=== PATIENT | female | born 2000 | race Two or more races ===

== ENCOUNTER 2022-09-29 21:22 | Emergency (ER) | payer OTHER, SELFPAY ==
--- NOTE | ~2022-09-29 | CT_ITS ---
EXAMINATION: CT ABDOMEN AND PELVIS WITHOUT CONTRAST CLINICAL INFORMATION: Constipation. Right flank pain, dysuria. COMPARISON: None TECHNIQUE: Multidetector volumetric imaging was performed from the superior aspect of the liver through the pubic symphysis. Sagittal and coronal reformatted images were obtained on the technologist's workstation. This CT examination was performed using dose optimization techniques as appropriate, variously including the following: *Automated exposure control *Adjustment of mA and/or kV according to patient size (this includes techniques or standardized protocols for targeted exams where dose is matched to indication/reason for exam; i.e. extremities or head) *Use of iterative reconstruction technique DLP: 1224 mGy-cm FINDINGS: LUNG BASES: The visualized lung bases are unremarkable. LIVER, GALLBLADDER, AND BILIARY TREE: The liver is normal in size, shape, and attenuation. No focal hepatic lesion or biliary ductal dilatation is present. The gallbladder is unremarkable with no evidence of radiopaque gallstones, gallbladder wall thickening, or obvious pericholecystic inflammatory changes. PANCREAS: Unremarkable. SPLEEN: Unremarkable. ADRENAL GLANDS: Unremarkable. KIDNEYS AND URETERS: The kidneys are normal in size, shape, and attenuation. No hydronephrosis, hydroureter, or calculi seen. No perinephric stranding. BLADDER: Unremarkable. GASTROINTESTINAL TRACT: Stomach, small bowel, and colon are normal in caliber. No bowel wall thickening or surrounding inflammatory changes. Appendix is normal. No intraperitoneal free fluid or free air. ABDOMINAL WALL: No significant hernia is appreciated. LYMPH NODES: Normal. VASCULAR: Unremarkable. PELVIC VISCERA: The uterus and adnexa are unremarkable. OSSEOUS STRUCTURES: No acute osseous findings. Bone mineralization is normal. No fractures. Lumbar spine is unremarkable. CT/CT abdomen pelvis wo IV con IMPRESSION: No acute abnormalities in the abdomen and pelvis. No hydronephrosis or nephrolithiasis. Fleischner guidelines were followed.
--- NOTE | ~2022-09-29 | CT_ITS ---
EXAMINATION: CT HEAD WITHOUT CONTRAST CLINICAL INFORMATION: slurred speech COMPARISON: None TECHNIQUE: Contiguous axial imaging was performed from the skull base to vertex without intravenous administration of contrast. This CT examination was performed using dose optimization techniques as appropriate, variously including the following: *Automated exposure control *Adjustment of mA and/or kV according to patient size (this includes techniques or standardized protocols for targeted exams where dose is matched to indication/reason for exam; i.e. extremities or head) *Use of iterative reconstruction technique Dose: 1224 mGy-cm FINDINGS: There is no evidence of acute intracranial hemorrhage or territorial infarction. No abnormal mass-effect or midline shift is seen. Daniels to white matter differentiation is well preserved. No extra axial fluid collections. The ventricles are normal in size and configuration. There is no abnormal attenuation within the brain parenchyma. The soft tissues and osseous structures are normal. The sinuses and mastoid air cells are clear. CT/CT head/brain wo IV con IMPRESSION: No acute intracranial pathology.
[2022-09-29 21:29] VITALS: BP 137/97; PULSE 134; RESP 18; TEMP 36.6; O2SAT 100; BMI 30.5
--- NOTE | 2022-09-29 22:23 | ECG_ITS ---
Test Reason : SOB Blood Pressure : / mmHG Vent. Rate : 128 BPM Atrial Rate : 128 BPM P-R Int : 122 ms QRS Dur : 080 ms QT Int : 306 ms P-R-T Axes : 041 051 -12 degrees QTc Int : [address] & T wave abnormality, consider inferior ischemia Abnormal ECG No previous ECGs available Referred By: Hanna Robertson Electronically Signed By:AMPARO ELKINS MD
--- NOTE | 2022-09-29 22:35 | ED.GENADULT ---
HPI - General Adult General Chief complaint: General Medical Stated complaint: pain while urinating, kdney, back, nauseous Time Seen by Provider: 09/29/22 22:22 Source: patient Mode of arrival: ambulatory Limitations: no limitations History of Present Illness HPI narrative: 22 year old female with no PMHx presents to the ED with her partner c/o bilateral flank pain, painful urination x5 days, constipation x 1 week, slurred speech and left lower head tigthness x 2 days. She reports taking laxative and milk of magnesia to help with constipation but denies alleviation of symptoms and reports lightheadedness with straining. She endorses flank pain associated with nausea and painful urination. Patient's partner reports worsening of speech this morning at work associated with SOB and palpitations. She reports associated tightness in the back of her neck and numbness of her feet. Pt denies any syncope, chest pain, recent illness, sick contact or recent travel. MD complaint: multiple medical complaints Onset (ago): week(s) (1 week) Location: head, back and abdomen Severity: moderate Quality: stabbing and aching Pain Consistency: constant Relieving factors: none Exacerbating factors: none Associated symptoms: cough, headaches, loss of appetite, malaise, shortness of breath and weakness Treatments prior to arrival: none Related Data Allergies Allergy/AdvReac Type Severity Reaction Status Date / Time Unable to Assess Allergy Unverified 09/29/22 22:23 Review of Systems Review of Systems: Constitutional: No Fever, No Chills ENT/Mouth: No sore throat, No Rhinorrhea, No Swallowing Difficulty Eyes: No Eye Pain, No Swelling, No Redness Cardiovascular: No Chest Pain, +SOB, No Orthopnea, No Edema Respiratory: No Cough, No Sputum, No Wheezing, No dyspnea Gastrointestinal: No Nausea, No Vomiting, No Diarrhea, No abdominal Pain, + Constipation Genitourinary: + Dysuria, No Urinary Frequency, No Hematuria Musculoskeletal: No joint pain, + Myalgias , +Neck tightness, +Flank pain Skin: No Skin Lesions, No rash Neuro: No Weakness,+ Numbness, No Dizziness, No Headache ,+ pressured/slurred speech Psych: No Anxiety/Panic, No Depression PMFSH Past Medical History Attestation statement: The following information was validated with the patient. Social History Social History Smoked in Last 30 Days: No Use of substances other than those prescribed or required for medical reasons: No Advance Directives: No Advance Directives Information Provided: Yes Patient : No Physical Exam ED Vital Signs: Vital Signs - 24 hr 09/29/22 21:29 09/30/22 00:11 09/30/22 00:23 Temperature 97.9 F 98.9 F 98.5 F Pulse Rate 134 H 123 H 128 H Respiratory Rate 18 23 H 21 H Blood Pressure 137/97 H 139/95 H 139/95 H Pulse Oximetry 100 99 98 Oxygen Delivery Method Room Air Room Air Room Air BMI result Body Mass Index 30.5 Appearance: Alert. Oriented X3. No acute distress. Eyes: Pupils equal, round and reactive to light. ENT: Pharynx normal. Neck: Normal inspection. Neck supple. +Neck tightness CVS: Pulses normal. +Tachycardic, regular rhythm - rate 120s Respiratory: No respiratory distress. Breath sounds normal. Abdomen: Soft with mild diffuse tenderness to deep palpation. positive +BS x4 No CVA tenderness. Skin: Skin warm and dry. Normal skin color. Normal skin turgor. No rashes. Extremities: No lower extremity edema. Neuro: Oriented X 3. No motor deficit. No sensory deficit. No numbness. CN II-XII intact. speech is pressured. Course Course Course Narrative: 22-year-old otherwise healthy female presents to the ER for for various complaints including constipation, dysuria, SOB, and slurred speech. Will get lab workup, CT scan of her head and abdomen, EKG, urinalysis and test. Reevaluation(s) Reevaluation #1: Labs show normal CBC. Metabolic panel is normal. EKG sinus tach without ischemic changes. CT the head is normal. CT of the abdomen and pelvis is normal. Pending urinalysis. Getting IV fluids. Will give bowel regimen orally for her reports of constipation. No significant stool burden seen on CT scan. Reevaluation #2: UA negative for infection. Ambulated to the bathroom. No pain at this time. Tolerating PO viridiana erin. Getting IVF. HR improved 110s, no distress and appears well. Anticipate d/c home once IVF resuscitation complete. Medications Administered Discontinued Medications Generic Name Dose Route Start Last Admin Trade Name Freq PRN Reason Stop Dose Admin Sodium Chloride 1,000 mls @ 999 mls/hr 09/29/22 22:30 09/30/22 00:11 Ns IVCONT 09/29/22 23:30 999 mls/hr .Q1H1M AIDAN Administration Ondansetron HCl 4 mg 09/29/22 22:42 09/30/22 00:11 Ondansetron Hcl 4 Mg/2 Ml Vial IVPUSH 09/29/22 22:43 4 mg ONCE ONE Administration Medical Decision Making [facility] Narrative Medical decision making narrative: 22 year old female with no PMHx presents to the ED with her partner c/o flank pain, painful urination x5 days, constipation x 1 week, slurred speech and left lower head tightness x 2 days. On exam , she is tachycardic with HR 134 and hypertensive with BP 137/97. Concern for Nephrolithiasis vs Pyelonephritis vs UTI, bowel obstruction. Low suspicion for CVA, migraine,colon cancer Plan: Labs, CT head, CT Abdomen Medical Records Medical records reviewed: Yes I reviewed the patient's medical records. Lab Data Lab results reviewed: Yes I reviewed the patient's lab results. Result diagrams: 09/29/22 22:53 09/29/22 22:53 Labs: Lab Results 09/29/22 09/29/22 09/30/22 Range/Units 22:53 22:53 00:13 WBC 7.0 (4.8-10.8) X10*3/uL RBC 4.45 (4.20-5.50) X10*6/uL Hgb 13.2 (12.0-16.0) g/dl Hct 40.3 (37.0-47.0) % MCV 90.6 (80.0-98.0) fL MCH 29.7 (27.0-33.0) pg MCHC 32.8 (31.0-35.0) g/dl RDW 14.6 (11.0-16.0) % Plt Count 385 (160-400) X10*3/uL MPV 8.6 L (9.4-12.3) fL Immature Gran % (Auto) 0.4 (0.0-0.4) % Neut % (Auto) 64.2 (45-73) % Lymph % (Auto) 26.8 (20-40) % [place] % (Auto) 7.7 (2-11) % Eos % (Auto) 0.6 (0-4) % Baso % (Auto) 0.3 (0-2) % Lymph # (Auto) 1.9 (1.2-4.9) X10*3/uL [place] # (Auto) 0.5 (0.1-1.2) X10*3/uL Eos # (Auto) 0.0 (0.0-0.4) X10*3/uL Baso # (Auto) 0.0 (0.0-0.2) X10*3/uL Abs Immat Gran (auto) 0.03 (0.00-0.03) X10*3/uL Absolute Neuts (auto) 4.5 (2.0-8.3) x10*3/uL Absolute Nucleated RBC 0.000 (0.0-0.012) X10*3/uL Nucleated RBC % (auto) 0.0 (0.0-0.2) /100WBC Sodium 140 (135-145) mmol/L Potassium 4.1 (3.3-5.1) mmol/L Chloride 103 (96-108) mmol/L Carbon Dioxide 23 (22-29) mmol/L Anion Gap 18 (12-20) BUN 11 (9-16) mg/dL Creatinine 1.21 (0.5-1.4) mg/dL Estim Creat Clear Calc 64.1 Estimated GFR 56 Random Glucose 93 (60-115) mg/dL Calcium 9.2 (8.4-10.2) mg/dL Magnesium 1.8 (1.6-2.6) mg/dL Total Bilirubin < 0.2 (0.0-1.0) mg/dL Direct Bilirubin < 0.2 (0.0-0.5) mg/dL AST 20 (5-31) U/L ALT 17 (0-31) U/L Alkaline Phosphatase 82 (39-117) U/L Total Protein 7.2 (6.5-8.0) g/dL Albumin 4.5 (3.5-5.0) g/dL Beta HCG, Quant < 2 mIU/mL Urine Color Urine Appearance Urine pH (5.0-9.0) Ur Specific [place] (1.005-1.025) Urine Protein (Neg-Trace) mg/dL Urine Glucose (UA) (Negative) mg/dL Urine Ketones (Negative) mg/dL Urine Blood (Negative) Urine Nitrite (Negative) Ur Leukocyte Esterase (Negative) Ethyl Alcohol < 10 mg/dL COVID-19 ([facility]) Negative (Negative) 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/22 Range/Units 00:43 WBC (4.8-10.8) X10*3/uL RBC (4.20-5.50) X10*6/uL Hgb (12.0-16.0) g/dl Hct (37.0-47.0) % MCV (80.0-98.0) fL MCH (27.0-33.0) pg MCHC (31.0-35.0) g/dl RDW (11.0-16.0) % Plt Count (160-400) X10*3/uL MPV (9.4-12.3) fL Immature Gran % (Auto) (0.0-0.4) % Neut % (Auto) (45-73) % Lymph % (Auto) (20-40) % [place] % (Auto) (2-11) % Eos % (Auto) (0-4) % Baso % (Auto) (0-2) % Lymph # (Auto) (1.2-4.9) X10*3/uL [place] # (Auto) (0.1-1.2) X10*3/uL Eos # (Auto) (0.0-0.4) X10*3/uL Baso # (Auto) (0.0-0.2) X10*3/uL Abs Immat Gran (auto) (0.00-0.03) X10*3/uL Absolute Neuts (auto) (2.0-8.3) x10*3/uL Absolute Nucleated RBC (0.0-0.012) X10*3/uL Nucleated RBC % (auto) (0.0-0.2) /100WBC Sodium (135-145) mmol/L Potassium (3.3-5.1) mmol/L Chloride (96-108) mmol/L Carbon Dioxide (22-29) mmol/L Anion Gap (12-20) BUN (9-16) mg/dL Creatinine (0.5-1.4) mg/dL Estim Creat Clear Calc Estimated GFR Random Glucose (60-115) mg/dL Calcium (8.4-10.2) mg/dL Magnesium (1.6-2.6) mg/dL Total Bilirubin (0.0-1.0) mg/dL Direct Bilirubin (0.0-0.5) mg/dL AST (5-31) U/L ALT (0-31) U/L Alkaline Phosphatase (39-117) U/L Total Protein (6.5-8.0) g/dL Albumin (3.5-5.0) g/dL Beta HCG, Quant mIU/mL Urine Color Yellow Urine Appearance Clear Urine pH 7.0 (5.0-9.0) Ur Specific [place] 1.010 (1.005-1.025) Urine Protein Negative (Neg-Trace) mg/dL Urine Glucose (UA) Negative (Negative) mg/dL Urine Ketones Negative (Negative) mg/dL Urine Blood Negative (Negative) Urine Nitrite Negative (Negative) Ur Leukocyte Esterase Negative (Negative) Ethyl Alcohol mg/dL COVID-19 ([facility]) (Negative) COVID-19 Clin Com ECG Data Attestation: I personally reviewed and interpreted this ECG as follows: Prior ECG tracings: not available for review Interpretation: Sinus tachycardia, ventricular rate 120 beats per minute, normal QRS, normal QTC. T-wave inversion in lead III and AVF. Discharge Plan Discharge Clinical Impression: Constipation Patient Disposition: Home, Self-Care Instructions: Constipation (ED) Additional Instructions: Your lab workup today was normal. Your CT scans were normal. Your urine test was negative for infection and . Recommend rest, plenty of oral hydration. Recommend [id number] Colace and senna to help you move your bowels. Also recommend MiraLax as a laxative. Follow-up with your primary care doctor. If you develop new or worsening symptoms call 911 or come back to the ER for further evaluation.
[2022-09-29 22:58] LABS: MANUAL DIFF FLAG NO
[2022-09-29 23:03] LABS: Basophils Percent Auto 0.3 % (0-2); Eosinophils Percent Auto 0.6 % (0-4); Hematocrit 40.3 % (37.0-47.0); Hemoglobin 13.2 g/dl (12.0-16.0); Imm Gran Abs Auto 0.03 X10*3/uL (0.00-0.03); Imm Gran Pct Auto 0.4 % (0.0-0.4); Lymphocytes Absolute Auto 1.9 X10*3/uL (1.2-4.9); Lymphocytes Percent Auto 26.8 % (20-40); Mean Corpuscular HGB Conc 32.8 g/dl (31.0-35.0); Mean Corpuscular Hemoglobin 29.7 pg (27.0-33.0); Mean Corpuscular Volume 90.6 fL (80.0-98.0); Mean Platelet Volume 8.6 fL (9.4-12.3); Monocytes Absolute Auto 0.5 X10*3/uL (0.1-1.2); Monocytes Percent Auto 7.7 % (2-11); Neutrophils Absolute Auto 4.5 x10*3/uL (2.0-8.3); Neutrophils Percent Auto 64.2 % (45-73); Platelet Count 385 X10*3/uL (160-400); Red Blood Count 4.45 X10*6/uL (4.20-5.50); Red Cell Distribution Width 14.6 % (11.0-16.0)
[2022-09-29 23:22] LABS: Alanine Aminotransferase 17 U/L (0-31); Albumin Level 4.5 g/dL (3.5-5.0); Alkaline Phosphatase 82 U/L (39-117); Anion Gap 18 (12-20); Aspartate Amino Transferase 20 U/L (5-31); Bilirubin Direct < 0.2 mg/dL (0.0-0.5); Bilirubin Total < 0.2 mg/dL (0.0-1.0); Blood Urea Nitrogen 11 mg/dL (9-16); Calcium 9.2 mg/dL (8.4-10.2); Carbon Dioxide 23 mmol/L (22-29); Chloride 103 mmol/L (96-108); Creatinine Clr Calc Pharmacy 64.1; Estimated Glomerular Filt Rate 56; Ethanol < 10 mg/dL; Glucose Random 93 mg/dL (60-115); Magnesium 1.8 mg/dL (1.6-2.6); Potassium 4.1 mmol/L (3.3-5.1); Sodium 140 mmol/L (135-145); Total Protein 7.2 g/dL (6.5-8.0)
[2022-09-29 23:46] LABS: HCG Quantitative < 2 mIU/mL
[2022-09-30 00:11] VITALS: BP 139/95; PULSE 123; RESP 23; TEMP 37.2; O2SAT 99
[2022-09-30] MEDS: ondansetron HCL 4 MG/2 ML VIAL IVPUSH (00:11)
[2022-09-30] MEDS: 0.9 % Sodium Chloride 1,000 ML 999 ML IVCONT (00:11)
[2022-09-30 00:23] VITALS: BP 139/95; PULSE 128; RESP 21; TEMP 36.9; O2SAT 98
--- NOTE | 2022-09-30 00:23 | PC.NURSE ---
Pt's at bedside, he has reported. pt has been having difficulties speaking since yesterday and has been complaining of nausea, llq pain 5/10 and difficulty of speak. Pt V/S are stable , but she is sinus tachy on the monitor. Provider is notified.
[2022-09-30 00:30] LABS: COVID-19 Test Negative (Negative); IDNOW Serial# BCCEAD1C
[2022-09-30 00:53] LABS: Appearance Urine Clear; Color Urine Yellow; Glucose Urine UA Negative (Negative); Leukocyte Esterase Urine Negative (Negative); Nitrite Urine Negative (Negative); Urine Blood Negative (Negative); Urine Ketones Negative (Negative); Urine Protein Negative (Neg-Trace)
[2022-09-30 01:19] LABS: Amphetamine Screen Urine Not Detected (Not Detect); Barbiturates, Urine Not Detected (Not Detect); Benzodiazepines Screen Urine Not Detected (Not Detect); Cannabinoid Screen Urine Not Detected (Not Detect); Cocaine Screen Urine Not Detected (Not Detect); Fentanyl, urine Not Detected (Not Detect); Opiate Screen Urine Not Detected (Not Detect); Phencyclidine Screen Urine Not Detected (Not Detect)
[2022-09-30] MEDS: Docusate Sodium 100 MG CAPSULE 200 MG PO (01:40)
[2022-09-30] MEDS: Ibuprofen 600 MG TABLET PO (01:40)
[2022-09-30] MEDS: LORazepam 1 MG TABLET PO (01:40)
[2022-09-30] MEDS: polyethylene glycoL 3350 17 GM POWD.PACK PO (01:41)
[2022-09-30] MEDS: Lactated Ringers 1,000 ML 999 ML IV (01:43)
[2022-09-30 04:31] VITALS: BP 144/104; PULSE 111; RESP 20; TEMP 36.9; O2SAT 99
[2022-09-30 06:08] VITALS: BP 137/100; PULSE 113; RESP 17; TEMP 37.1; O2SAT 98
== END 2022-09-30 06:40 | disposition home or self-care (01) ==
PROVIDERS: Physician Assistant; Emergency Provider Internal Medicine
DX: K59.00 Constipation, unspecified (principal); R00.0 Tachycardia, unspecified; Z20.822 Contact with and (suspected) exposure to COVID-19; R10.9 Unspecified abdominal pain; R47.81 Slurred speech; R20.0 Anesthesia of skin; M79.10 Myalgia, unspecified site
CPT/HCPCS: 70450; 74176; 80048; 80076; 80307; 81003; 82077; 83735; 84702; 85025; 87635; 93005; 96361; 96374; 99285; J2405

== ENCOUNTER 2022-10-03 09:54 | Emergency (ER) | payer OTHER, SELFPAY ==
--- NOTE | ~2022-10-03 | XR_ITS ---
EXAMINATION: XR ABDOMEN KUB CLINICAL INDICATION: Constipation COMPARISON: None TECHNIQUE: 2 views of the abdomen. FINDINGS: The bowel gas pattern is normal with no evidence of ileus or obstruction. No unusual soft tissue calcifications are noted. The bones are unremarkable. XR/XR KUB IMPRESSION: Unremarkable examination.
[2022-10-03 10:01] VITALS: BP 141/89; PULSE 112; RESP 14; TEMP 36.3; O2SAT 100; BMI 30.2
--- NOTE | 2022-10-03 10:20 | ED_ITS ---
HPI - General Adult General Chief complaint: General Medical Stated complaint: Unable to have a Bowel Movement 11 Days Time Seen by Provider: 10/03/22 10:16 Source: patient Mode of arrival: ambulatory Limitations: no limitations History of Present Illness HPI narrative: 22 y/o female presents to the ER complaining of constipation and urinary retention. She was here for constipation on 09/29 - he had an unremarkable CT scan done at that time as well as unremarkable lab workup. Patient states since then she has been taking [id number]-[id number] MiraLax, milk of magnesia, increasing her fiber and hydration. She reports a history of constipation in the past but nothing this bad. She denies any fever or chills. No vaginal bleeding or discharge. She reports difficulty urinating and needing to ?concentrate? when she needs to urinate. She denies any dysuria or hematuria. MD complaint: Constipation Onset (ago): week(s) Location: head Radiation: non-radiation Severity: moderate Pain Consistency: constant Relieving factors: none Exacerbating factors: none Associated symptoms: confusion, loss of appetite and other (Fatigue) Treatments prior to arrival: none Related Data Previous Rx's Medication Instructions Recorded bisacodyl 10 mg rectal suppository 10 mg OH DAILY PRN constipation 10/03/22 (Dulcolax (bisacodyl)) #12 ea docusate sodium 100 mg capsule 100 mg PO BID #20 caps 10/03/22 (Colace) sennosides 8.6 mg tablet (senna) 8.6 mg PO DAILY #14 tabs 10/03/22 Allergies Allergy/AdvReac Type Severity Reaction Status Date / Time No Known Allergies Allergy Verified 10/03/22 10:07 Review of Systems Review of Systems: Constitutional: No Fever, No Chills, +Fatigue ENT/Mouth: No sore throat, No Rhinorrhea, No Swallowing Difficulty Eyes: No Eye Pain, No Swelling, No Redness Cardiovascular: No Chest Pain, No SOB, No Orthopnea, No Edema Respiratory: No Cough, No Sputum, No Wheezing, No dyspnea Gastrointestinal: + Nausea, No Vomiting, No Diarrhea, No abdominal Pain, No Hematochezia, No Melena Genitourinary: No Dysuria, No Urinary Frequency, No Hematuria Musculoskeletal: No joint pain, No Myalgias Skin: No Skin Lesions, No rash Neuro: No Weakness, No Numbness, No Dizziness, No Headache Psych: No Anxiety/Panic, No Depression Heme/Lymph: No Bruising, No Lymphadenopathy Endocrine: No Polyuria, No Polydipsia PMFSH Social History Social History Advance Directives: No Advance Directives Information Provided: Yes Physical Exam ED Vital Signs: Vital Signs - 24 hr 10/03/22 10:01 Temperature 97.4 F Pulse Rate 112 H Respiratory Rate 14 Blood Pressure 141/89 H Pulse Oximetry 100 Oxygen Delivery Method Room Air BMI result Body Mass Index 30.2 Course Course Course Narrative: 22-year-old female presents to the ER for constipation for the last 11 days. She also reports feeling ?off? and fatigued. She has tried several hbnk-vhk-briuhju remedies with minimal success. She did have a small bowel movement this morning with what looked like sand. She also had 1 episode of vomiting this morning. CT scan from the has been reviewed as well as her lab workup. Will get KUB and urinalysis. Will treat with oral laxatives and rectal suppository. Will reassess. Reevaluation(s) Reevaluation #1: Patient up to the bathroom and evacuated large amount of gas and small amount of stool. Abdomen is nice and soft. At this time stable for discharge home with OH Dulcolax and oral bowel regimen. Will refer to GI. Medications Administered Discontinued Medications Generic Name Dose Route Start Last Admin Trade Name Freq PRN Reason Stop Dose Admin Bisacodyl 10 mg 10/03/22 10:57 10/03/22 11:14 Bisacodyl 10 Mg Supp.Rect OH 10/03/22 10:58 10 mg ONCE ONE Administration Lactulose 30 gm 10/03/22 10:57 10/03/22 11:13 Lactulose 20 Gm/30 Ml Solution PO 10/03/22 10:58 30 gm ONCE ONE Administration Polyethylene Glycol 17 gm 10/03/22 10:57 10/03/22 11:20 Polyethylene Glycol 3350 17 Gm Powd.Pack PO 10/03/22 10:58 17 gm ONCE ONE Administration Senna 15 ml 10/03/22 10:57 10/03/22 11:13 Senna [place] Extract Oral Syrup 15 Ml Syrup PO 10/03/22 10:58 15 ml ONCE ONE Administration Medical Decision Making Lab Data Labs: Lab Results 10/03/22 Range/Units 11:04 Urine Color Yellow Urine Appearance Clear Urine pH 5.5 (5.0-9.0) Ur Specific [place] 1.025 (1.005-1.025) Urine Protein Negative (Neg-Trace) mg/dL Urine Glucose (UA) Negative (Negative) mg/dL Urine Ketones Negative (Negative) mg/dL Urine Blood Negative (Negative) Urine Nitrite Negative (Negative) Ur Leukocyte Esterase Negative (Negative) Discharge Plan Discharge Clinical Impression: Constipation Patient Disposition: Home, Self-Care Instructions: Constipation (ED), High Fiber Diet (ED) Additional Instructions: Your x-ray today did not show any evidence of bowel obstruction. Take the prescribed medications as directed. Also recommend continuing MiraLax once or twice per day. Recommend following up with GI if you have ongoing symptoms of constipation. If you develop new or worsening symptoms call 911 or come back to the ER for further evaluation. Prescriptions: New sennosides [senna] 8.6 mg tablet 8.6 mg PO DAILY Qty: 14 0RF docusate sodium [Colace] 100 mg capsule 100 mg PO BID Qty: 20 0RF bisacodyl [Dulcolax (bisacodyl)] 10 mg suppository 10 mg [place] DAILY PRN (Reason: constipation) Qty: 12 0RF Referrals: [facility] Gastroenterology Services [Provider Group] Stand Alone Forms: Work/School Release Interventions: ED Discharge Assessment Last Done: 10/03/22 13:22 Discharge Date/Time: 10/03/22 13:23
[2022-10-03] MEDS: Lactulose 20 GM/30 ML SOLUTION 30 GM PO (11:13)
[2022-10-03] MEDS: bisacodyL 10 MG SUPP.RECT PR (11:14)
[2022-10-03 11:20] LABS: Appearance Urine Clear; Color Urine Yellow; Glucose Urine UA Negative (Negative); Leukocyte Esterase Urine Negative (Negative); Nitrite Urine Negative (Negative); PH 5.5 (5.0-9.0); Specific Gravity - Urine 1.025 (1.005-1.025); Urine Blood Negative (Negative); Urine Ketones Negative (Negative); Urine Protein Negative (Neg-Trace)
[2022-10-03] MEDS: polyethylene glycoL 3350 17 GM POWD.PACK PO (11:20)
[2022-10-03 13:37] LABS: Urine Pregnancy NEGATIVE (NEGATIVE)
[2022-10-03 13:38] LABS: UPreg QC Valid YES
== END 2022-10-03 13:23 | disposition home or self-care (01) ==
PROVIDERS: Physician Assistant; Emergency Provider Emergency Medicine Emergency Medical Services
DX: K59.00 Constipation, unspecified (principal); Z79.899 Other long term (current) drug therapy
CPT/HCPCS: 74018; 81003; 81025; 99283

== ENCOUNTER 2022-10-24 19:16 | Emergency (ER) | payer OTHER, SELFPAY ==
--- NOTE | ~2022-10-24 | XR_ITS ---
EXAMINATION: BILATERAL HAND X-RAY CLINICAL INFORMATION: Bilateral hand swelling COMPARISON: None TECHNIQUE: 3 views of each hand FINDINGS: Bone alignment is normal. No fracture or dislocation. Normal joint spaces. Normal mineralization. Normal soft tissues. XR/XR hand LT 2V IMPRESSION: Unremarkable exam.
--- NOTE | ~2022-10-24 | XR_ITS ---
EXAMINATION: BILATERAL HAND X-RAY CLINICAL INFORMATION: Bilateral hand swelling COMPARISON: None TECHNIQUE: 3 views of each hand FINDINGS: Bone alignment is normal. No fracture or dislocation. Normal joint spaces. Normal mineralization. Normal soft tissues. XR/XR hand RT 2V IMPRESSION: Unremarkable exam.
[2022-10-24 19:37] VITALS: BMI 33.0
[2022-10-24 19:40] VITALS: RESP 20
[2022-10-24] MEDS: Haloperidol Lactate 5 MG/ML VIAL IM (19:40)
[2022-10-24] MEDS: diphenhydrAMINE HCL 50 MG/ML VIAL IM (19:40)
[2022-10-24] MEDS: Ziprasidone Mesylate 20 MG VIAL IM (19:40)
--- NOTE | 2022-10-24 19:40 | ED_ITS ---
HPI - General Adult General Stated complaint: Section 12 Time Seen by Provider: 10/24/22 19:18 Source: EMS Mode of arrival: EMS Limitations: other (Erratic behavior) History of Present Illness HPI narrative: Patient comes to the emergency room via EMS. Patient is erratic, screaming, singing relations music, unwilling to talk. EMS and Police Department report that patient was found outside the house. The owners of the house called PD. They state that the patient knock on their door, patient yelling that she needed help. PD arrived, patient was barefooted, run in the middle of the street healing that she wanted to . Patient was Section 12 by police department. When the ambulance was in route to the hospital, patient tried to get out of the stretcher and tried to exit the ambulance. Police department officer was in the ambulance, the patient was handcuffed. On arrival to the emergency room, patient is screaming, kicking, singing nondenominational music, not answering any question. Police department states that they are not sure if this is the patient's correct name, patient did not have an ID on her. Related Data Allergies Allergy/AdvReac Type Severity Reaction Status Date / Time Unable to Assess Allergy Unverified 10/24/22 19:38 Review of Systems Review of Systems: Yes Unobtainable due to mental condition PMFSH Past Medical History Attestation statement: The following information was validated with the patient. (Patient's 1st visit in the emergency room, no prior information, patient is not giving any information) Physical Exam ED Const Other: Appearance: Alert. Acting erratic, barefooted Eyes: Pupils equal, round and reactive to light. ENT: Pharynx normal. Neck: Normal inspection. Neck supple. No lymph nodes noted. No crepitus CVS: Normal heart rate and rhythm. Pulses normal. Normal S1 and S2 Respiratory: No respiratory distress. Breath sounds normal. No Wheezing. No rales Abdomen: Soft and nontender. No rigidity. No distention. Skin: Skin warm and dry. Patient has old ecchymosis and swelling in both dorsums of the hand Extremities: See skin above Neuro: CN 2 through 12 grossly intact music missing Psych: Acting erratic, screaming, throwing punches and kicks randomly, singing nondenominational music Course Course Course Narrative: Staff tried redirecting the patient, but patient is not following any directions. Continues kicking punching, screaming very loudly, singing nondenominational music. Section 12 was filled out by police department. For staff's safety and the patient's safety, patient was given IM Haldol 5 mg, 50 mg Benadryl, 20 mg Geodon. Patient was sitting quietly for a few minutes, then suddenly patient got up and tried to run out the door. Patient was stopped by staff and redirected to her room. At this time, patient seems to be sleeping comfortably All of the patient's labs are pending. Also, x-rays of both hands are pending. Patient has old ecchymosis in both dorsums and patient is unable to provide any history. Behavioral health network consult pending. Physician observation started at 19:50 Discharge Plan Discharge Clinical Impression: Psychosis, Suicidal ideation Patient Disposition: Still a Patient
[2022-10-24 19:55] VITALS: RESP 18
[2022-10-24 20:10] VITALS: RESP 18
[2022-10-24 20:25] VITALS: RESP 16
--- NOTE | 2022-10-24 20:26 | MHC.CARE ---
Pt is a 22 year old female that presented to [facility] ED via EMS with reports of pt being found outside the house with erratic behaviors (screaming, singing relational music, and unwilling to talk). Plan discussed with Richelle Haider MD. Pt to be reassessed in the morning.
[2022-10-24 20:40] VITALS: RESP 16
--- NOTE | 2022-10-24 21:09 | PC.NURSE ---
Patient grossly paranoid, endorsing visual hallucination seeing her , intermittently yelling and screaming, trying to pull her hand out of police handcuff so hard that risk of hurting her already bruised wrist is paramount, grossly disoriented, provider on site, Haldol mg IM, Benadryl 50 mg IM and Geodon 20 mg IM administered as ordered at 1939 with + effect, patient finally fell sleep at 2024, changeover is not appropriate at this time, provider okayed to have place change roof bolter done when patient is more appropriate later. Spoke with patient's in the waiting room, per patient has long history mental health issues, patient stopped taking her medication after they hybrid tester here from [place], reported patient often engages in binge drinking, today found cannabis gummy edibles and cannabis oil used for vaping at the bed side.
[2022-10-25 05:20] VITALS: RESP 17
--- NOTE | 2022-10-25 05:49 | PC.NURSE ---
Patient slept through the night, no distress observed/reported, all labs order and changeover pending per provider due to increased psychosis, [facility] pharmacy called to retrieve medication history with no luck, pharmacy called for help and they tried without success, however pharmacy will will call [place] in the morning to retrieve medication history, per patient's she was diagnosed with Bipolar in [place], N referral completed/confirmed/pending ETA, will continue to monitor.
[2022-10-25 06:46] VITALS: BP 140/92; PULSE 71; RESP 16; TEMP 36.8; O2SAT 100
[2022-10-25 07:06] LABS: UPreg QC Valid YES; Urine Pregnancy NEGATIVE (NEGATIVE)
[2022-10-25 07:13] LABS: Appearance Urine Clear; Color Urine Yellow; Glucose Urine UA Negative (Negative); Leukocyte Esterase Urine Negative (Negative); Nitrite Urine Negative (Negative); PH 5.5 (5.0-9.0); Specific Gravity - Urine 1.015 (1.005-1.025); UMIC TRIGGER UA YES; Urine Blood Negative (Negative); Urine Ketones Negative (Negative); Urine Protein 30 (1+) mg/dL (Neg-Trace)
[2022-10-25 07:15] LABS: Amphetamine Screen Urine Not Detected (Not Detect); Barbiturates, Urine Not Detected (Not Detect); Benzodiazepines Screen Urine Not Detected (Not Detect); Cannabinoid Screen Urine POSITIVE (Not Detect); Cocaine Screen Urine Not Detected (Not Detect); Fentanyl, urine Not Detected (Not Detect); Opiate Screen Urine Not Detected (Not Detect); Phencyclidine Screen Urine Not Detected (Not Detect)
[2022-10-25 07:16] LABS: Bacteria Urine Trace (None Seen); Hyaline Casts Urine 0-2 /LPF (0-2); WBC Urine 0-5 /HPF (0-5)
[2022-10-25 07:28] LABS: MANUAL DIFF FLAG NO
[2022-10-25 07:30] LABS: Basophils Percent Auto 0.2 % (0-2); Eosinophils Percent Auto 0.1 % (0-4); Hematocrit 41.3 % (37.0-47.0); Hemoglobin 13.6 g/dl (12.0-16.0); Imm Gran Abs Auto 0.07 X10*3/uL (0.00-0.03); Imm Gran Pct Auto 0.7 % (0.0-0.4); Lymphocytes Absolute Auto 1.8 X10*3/uL (1.2-4.9); Lymphocytes Percent Auto 18.4 % (20-40); Mean Corpuscular HGB Conc 32.9 g/dl (31.0-35.0); Mean Corpuscular Hemoglobin 29.1 pg (27.0-33.0); Mean Corpuscular Volume 88.4 fL (80.0-98.0); Mean Platelet Volume 8.1 fL (9.4-12.3); Monocytes Absolute Auto 0.7 X10*3/uL (0.1-1.2); Monocytes Percent Auto 7.2 % (2-11); Neutrophils Absolute Auto 7.2 x10*3/uL (2.0-8.3); Neutrophils Percent Auto 73.4 % (45-73); Platelet Count 371 X10*3/uL (160-400); Red Blood Count 4.67 X10*6/uL (4.20-5.50); Red Cell Distribution Width 14.4 % (11.0-16.0); White Blood Count 9.8 X10*3/uL (4.8-10.8)
[2022-10-25 07:36] LABS: Influenza A PCR NEGATIVE (Negative); Influenza B PCR NEGATIVE (Negative); Resp Syncy Virus RNA Qual PCR NEGATIVE (Negative); SARS COV2 PCR INHOUSE NEGATIVE (Negative)
[2022-10-25 07:47] VITALS: RESP 19
[2022-10-25 08:21] LABS: Alanine Aminotransferase 26 U/L (0-31); Albumin Level 4.3 g/dL (3.5-5.0); Alkaline Phosphatase 82 U/L (39-117); Anion Gap 15 (12-20); Aspartate Amino Transferase 51 U/L (5-31); Blood Urea Nitrogen 11 mg/dL (9-16); Calcium 9.5 mg/dL (8.4-10.2); Carbon Dioxide 26 mmol/L (22-29); Chloride 102 mmol/L (96-108); Creatinine Clr Calc Pharmacy 101.4; Estimated Glomerular Filt Rate > 60; Glucose Random 116 mg/dL (60-115); Potassium 4.2 mmol/L (3.3-5.1); Sodium 139 mmol/L (135-145); Total Protein 6.9 g/dL (6.5-8.0)
[2022-10-25 08:43] LABS: Bilirubin Total 0.3 mg/dL (0.0-1.0)
--- NOTE | 2022-10-25 11:11 | PC.NURSE ---
Per [facility]: keep pt in ED until 1500, for to pick her up.
== END 2022-10-25 15:51 | disposition home or self-care (01) ==
PROVIDERS: Emergency Provider Emergency Medicine
DX: F43.0 Acute stress reaction (principal); R45.851 Suicidal ideations; M79.642 Pain in left hand; M79.641 Pain in right hand; Z79.899 Other long term (current) drug therapy; Z20.822 Contact with and (suspected) exposure to COVID-19
CPT/HCPCS: 0241U; 36415; 73120; 80053; 80307; 81001; 81003; 81025; 85025; 96372; 99285; J1200; J3486

== ENCOUNTER 2022-10-25 21:35 | Emergency (ER) | payer OTHER, SELFPAY ==
[2022-10-25 21:43] VITALS: BP 137/93; BP 142/94; PULSE 119; PULSE 130; RESP 22; TEMP 36.6; O2SAT 100; O2SAT 99; BMI 31.1
[2022-10-25 21:48] VITALS: BP 137/93; PULSE 116; PULSE 118; RESP 16; TEMP 36.5; O2SAT 98
[2022-10-25 21:50] LABS: Glucose, Whole Blood 185 mg/dL (60-115)
--- NOTE | 2022-10-25 22:02 | ED_ITS ---
HPI - Psych General Chief Complaint: ETOH/Substance Use Stated Complaint: overdose Time Seen by Provider: 10/25/22 21:41 Source: EMS Mode of arrival: EMS Limitations: other ( intoxicated) History of Present Illness HPI Narrative: patient comes to the emergency room by EMS. family called EMS because patient started having erratic, slow to respond, diaphoretic. Patient took 10 THC gummies. Of note, patient was seen here for the same thing. However, yesterday patient did not have an ID on her, patient was registered as Pina Nelson Timoteo ( registration will help us merge both charts together). yesterday, patient presented much worse than today, yesterday patient was psychotic, punching and kicking people, singing sabianist music. Today, patient is slow to respond. According to EMS, patient is tachycardic in the 120s to 130s. Blood pressure reported by EMS was in the 170s, here in the ED 137/93. Patient is answering questions but she is slow to do so. Related Data Previous Rx's Medication Instructions Recorded bisacodyl 10 mg rectal suppository 10 mg NH DAILY PRN constipation 10/03/22 (Dulcolax (bisacodyl)) #12 ea docusate sodium 100 mg capsule 100 mg PO BID #20 caps 10/03/22 (Colace) sennosides 8.6 mg tablet (senna) 8.6 mg PO DAILY #14 tabs 10/03/22 Allergies Allergy/AdvReac Type Severity Reaction Status Date / Time No Known Allergies Allergy Verified 10/03/22 10:07 Review of Systems Review of Systems: Constitutional : No Weight loss, No Fever, No Chills, No Night Sweats, No Fatigue, No Malaise ENT/Mouth : No Hearing loss, No Ear Pain, No Nasal Congestion, No Sinus Pain, No Hoarseness, No sore throat, No Rhinorrhea, No Swallowing Difficulty Eyes: No Eye Pain, No Swelling, No Redness, No Foreign Body, No Discharge, No Vision Changes Cardiovascular : No Chest Pain, No SOB, No Dyspnea on Exertion, No Orthopnea, No Edema, No Palpitations Respiratory : No Cough, No Sputum, No Wheezing, No Smoke Exposure, No Dyspnea Gastrointestinal : No Nausea, No Vomiting, No Diarrhea, No Constipation, No abdominal Pain, No Hematochezia, No Melena Genitourinary : no irregular bleeding, No Dysuria, No Urinary Frequency, No Hematuria, No Urinary Incontinence, No Urgency, No Flank Pain, No Urinary Flow Changes, No Hesitancy Musculoskeletal : No joint pain, No Myalgias, No Joint Swelling Skin : No Skin Lesions, No rash Neuro : No Weakness, No Numbness, No Paresthesias, No Loss of Consciousness, No Dizziness, No Headache Psych : No Anxiety/Panic, No Depression, No SI/HI/AH/VH, Admits to using marijuana gummies Heme/Lymph: No Bruising, No Bleeding,No Lymphadenopathy Endocrine : No Polyuria, No Polydipsia, No Temperature Intolerance [facility], [facility] Past Medical History Medical History (Updated 10/25/22 @ 22:14 by Richelle Haider MD) Bipolar disorder Substance abuse Social History Social History Alcohol intake: current Alcohol intake frequency: holidays/special occasions only Smoked in Last 30 Days: No Use of substances other than those prescribed or required for medical reasons: Yes Substance Use Type: Marijuana Physical Exam Vital Signs: Vital Signs: Last Vital Signs Temp 97.7 F 10/25/22 21:48 Pulse 118 H 10/25/22 21:48 Resp 16 10/25/22 21:48 BP 137/93 H 10/25/22 21:48 Pulse Ox 98 10/25/22 21:48 O2 Del Method 10/25/22 21:48 BMI result Body Mass Index 31.1 Const: Other: Appearance: Alert. Oriented X3. No acute distress. Eyes: Pupils equal, round and reactive to light. ENT: Pharynx normal. Neck: Normal inspection. Neck supple. No lymph nodes noted. No crepitus CVS: Normal heart rate and rhythm. Pulses normal. Normal S1 and S2 Respiratory: No respiratory distress. Breath sounds normal. No Wheezing. No rales Abdomen: Soft and nontender. No rigidity. No distention. Skin: Skin warm and dry. Normal skin color. Normal skin turgor. Extremities: No lower extremity edema. No Lacerations. No Rash Neuro: Oriented X 3. No motor deficit. No sensory deficit. Moving all extremities. No slurred speech. CN 2 through 12 grossly intact Psych: calm, cooperative, after question is asked to the patient, patient stares, takes approximately 10 seconds to answer with small short words Course Course Course Narrative: patient receiving IV fluids, blood glucose within normal limits. We will allow the patient to metabolize to freedom and then re-evaluate. At this time, patient denies any suicidal or homicidal ideation. Physician observation started at 22:00 Medical Decision Making Medical Decision Making Differential Diagnoses: Differential diagnosis ( marijuana abuse, polysubstance abuse) Discharge Plan Discharge Clinical Impression: Cannabis abuse Patient Disposition: Still a Patient Prescriptions: No Action sennosides [senna] 8.6 mg tablet 8.6 mg PO DAILY Qty: 14 0RF docusate sodium [Colace] 100 mg capsule 100 mg PO BID Qty: 20 0RF bisacodyl [Dulcolax (bisacodyl)] 10 mg suppository 10 mg NH DAILY PRN (Reason: constipation) Qty: 12 0RF Interventions: [place]-Suicide Risk Severity Scale Last Done: 10/25/22 21:48
[2022-10-25 23:09] VITALS: BP 122/81; PULSE 107; RESP 15; TEMP 37.2; O2SAT 99
[2022-10-26] VITALS (8 sets, daily range): BP systolic 119–138; BP diastolic 76–92; PULSE 94–114; RESP 11–20; TEMP 36.8–37.2; O2SAT 98–100
--- NOTE | 2022-10-26 14:27 | PC.NURSE ---
patient a/ox4 . VSS . Went over discharge instructions as ordered by provider . Patient to follow up with N , contact information provided . no questions at this time
== END 2022-10-26 14:28 | disposition home or self-care (01) ==
PROVIDERS: Emergency Provider Emergency Medicine
DX: F12.10 Cannabis abuse, uncomplicated (principal); F19.10 Other psychoactive substance abuse, uncomplicated
CPT/HCPCS: 82947; 99283; 99285

== ENCOUNTER 2022-12-01 06:29 | Emergency (ER) | payer SELFPAY ==
[2022-12-01 06:33] VITALS: BP 129/90; PULSE 112; RESP 20; TEMP 36.1; O2SAT 100; BMI 29.0
[2022-12-01 07:17] LABS: MANUAL DIFF FLAG NO
[2022-12-01 07:26] LABS: Basophils Percent Auto 0.5 % (0-2); Hematocrit 39.5 % (37.0-47.0); Hemoglobin 13.4 g/dl (12.0-16.0); Imm Gran Abs Auto 0.03 X10*3/uL (0.00-0.03); Imm Gran Pct Auto 0.5 % (0.0-0.4); Lymphocytes Absolute Auto 2.3 X10*3/uL (1.2-4.9); Lymphocytes Percent Auto 41.2 % (20-40); Mean Corpuscular HGB Conc 33.9 g/dl (31.0-35.0); Mean Corpuscular Hemoglobin 29.5 pg (27.0-33.0); Mean Platelet Volume 8.2 fL (9.4-12.3); Monocytes Absolute Auto 0.2 X10*3/uL (0.1-1.2); Monocytes Percent Auto 3.9 % (2-11); Neutrophils Percent Auto 53.9 % (45-73); Platelet Count 436 X10*3/uL (160-400); Red Blood Count 4.54 X10*6/uL (4.20-5.50); Red Cell Distribution Width 14.5 % (11.0-16.0); White Blood Count 5.6 X10*3/uL (4.8-10.8)
[2022-12-01 07:35] LABS: Anion Gap 13 (12-20); Blood Urea Nitrogen 10 mg/dL (9-16); Calcium 8.8 mg/dL (8.4-10.2); Carbon Dioxide 29 mmol/L (22-29); Chloride 103 mmol/L (96-108); Creatinine Clr Calc Pharmacy 109.7; Estimated Glomerular Filt Rate > 60; Glucose Random 110 mg/dL (60-115); Potassium 3.9 mmol/L (3.3-5.1); Sodium 141 mmol/L (135-145)
--- NOTE | 2022-12-01 07:39 | ED_ITS ---
HPI - General Adult General Chief complaint: Abdominal Pain Stated complaint: n/v Time Seen by Provider: 12/01/22 07:21 Source: patient Mode of arrival: ambulatory Limitations: no limitations History of Present Illness HPI narrative: 22-year-old female came in for evaluation of abdominal pain and vomiting. The abdominal pain started since last night after eating a whole bag of chips woke up with epigastric pain and non stopping vomiting, no diarrhea, patient thinks she might be no vaginal bleed or discharge. Never had surgical history in the past. Related Data Previous Rx's Medication Instructions Recorded bisacodyl 10 mg rectal suppository 10 mg NM DAILY PRN constipation 10/03/22 (Dulcolax (bisacodyl)) #12 ea docusate sodium 100 mg capsule 100 mg PO BID #20 caps 10/03/22 (Colace) sennosides 8.6 mg tablet (senna) 8.6 mg PO DAILY #14 tabs 10/03/22 Allergies Allergy/AdvReac Type Severity Reaction Status Date / Time No Known Allergies Allergy Verified 12/01/22 06:36 Review of Systems Review of Systems: All other systems are reviewed and are negative Constitutional: Reports as per HPI and Reports no additional constitutional complaints Eyes: Reports as per HPI and Reports no additional eye complaints Reports system reviewed and no additional complaints, except as documented Cardiovascular: Reports as per HPI and Reports no additional cardiovascular complaints Respiratory: Reports as per HPI and Reports no additional respiratory complaints Gastrointestinal: Reports as per HPI and Reports no additional gastrointestinal complaints Genitourinary: Reports no additional female genitourinary complaints Musculoskeletal: Reports no additional musculoskeletal complaints Skin/Breast: Reports system reviewed and no additional complaints, except as docu Psychiatric: Reports no additional psychiatric complaints Endocrine: Reports no additional endocrine complaints Hematologic/Lymphatic: Reports no additional hematologic/lymphatic complaints Allergic/Immunologic: Reports no additional allergic/immunologic complaints Reports system reviewed and no additional complaints, except as documented and Reports Abnormal speech present [facility] Past Medical History Medical History Bipolar disorder Substance abuse Social History Social History Alcohol intake: current Alcohol intake frequency: holidays/special occasions only Substance Use Type: Marijuana Advance Directives: No Advance Directives Information Provided: Yes Physical Exam ED Vital Signs: Vital Signs - 24 hr 12/01/22 06:33 Temperature 96.9 F Pulse Rate 112 H Respiratory Rate 20 Blood Pressure 129/90 H Pulse Oximetry 100 Oxygen Delivery Method Room Air BMI result Body Mass Index 29.0 Vital signs have been reviewed as appeared to be correct. Blood pressure normal. Heart rate normal. Respiration rate normal. Temperature normal. Oxygen saturation normal. Appearance: Anxious, Alert. Oriented X3. No acute distress. Head: Normal external exam. Normocephalic. Atraumatic. No Valero signs noted. No raccoon eyes noted Eyes: PERRLA. EOMI. Conjunctiva and sclera normal. Eyelids normal. ENT: TM's Normal. Pharynx normal. Uvula midline. Moist mucous membranes. No trismus noted. No drooling noted. No muffled voice noted. Neck: Normal inspection. Neck supple. FROM. No adenopathy. Thyroid Normal. No meningeal signs. No neck mass noted. CVS: Normal heart rate and rhythm. Heart sound normal. No murmurs noted. Pulses normal throughout. Respiratory: No respiratory distress. Painless inspiration. Breath sounds normal . No wheezes/rales/rhonchi noted. Chest nontender. No accessory muscle usage noted or decreased air movement noted. Abdomen: Soft and nontender. Bowel sounds normal in all 4 quadrants. No distention noted. No organomegaly noted. No visible injury noted. Back: No CVA tenderness. Full range of motion noted. Skin: Skin warm and dry. Normal skin color. Normal skin turgor. No rashes/lesions/lacerations noted. Extremities: No lower extremity edema. Extremities exhibit normal range of motion. Extremities nontender. Neuro: Oriented X 3. Cranial nerve exam: II-XII are grossly intact No motor deficit. No sensory deficit. Reflexes normal. Course Course Course Narrative: 22-year-old female came in with upper abdominal pain and nausea with vomiting after eating a whole bag of chips last night, patient appear anxious while in the ED received Ativan for anxiety, patient left before full evaluation in the ED. Medications Administered Discontinued Medications Generic Name Dose Route Start Last Admin Trade Name Freq PRN Reason Stop Dose Admin Sodium Chloride 1,000 mls @ 999 mls/hr 12/01/22 07:37 12/01/22 09:22 Ns IV 12/01/22 08:37 Infused .Q1H1M ONE Infusion Lorazepam 1 mg 12/01/22 09:07 12/01/22 09:31 Lorazepam 1 Mg Tablet PO 12/01/22 09:08 1 mg ONCE ONE Administration Ondansetron HCl 4 mg 12/01/22 07:37 12/01/22 08:09 Ondansetron Hcl 4 Mg/2 Ml Vial IVPUSH 12/01/22 07:38 Not Given ONCE ONE Medical Decision Making Differential Diagnosis Differential Diagnoses: The differential diagnosis associated with the presentation includes (Gastritis, food poisoning, gastroenteritis, dehydration, .) Lab Data MDM Lab Attestation statement: I reviewed the patient's lab results. 12/01/22 07:13 12/01/22 07:13 Labs: Lab Results 12/01/22 12/01/22 Range/Units 07:13 07:13 WBC 5.6 (4.8-10.8) X10*3/uL RBC 4.54 (4.20-5.50) X10*6/uL Hgb 13.4 (12.0-16.0) g/dl Hct 39.5 (37.0-47.0) % MCV 87.0 (80.0-98.0) fL MCH 29.5 (27.0-33.0) pg MCHC 33.9 (31.0-35.0) g/dl RDW 14.5 (11.0-16.0) % Plt Count 436 H (160-400) X10*3/uL MPV 8.2 L (9.4-12.3) fL Immature Gran % (Auto) 0.5 H (0.0-0.4) % Neut % (Auto) 53.9 (45-73) % Lymph % (Auto) 41.2 H (20-40) % [place] % (Auto) 3.9 (2-11) % Eos % (Auto) 0.0 (0-4) % Baso % (Auto) 0.5 (0-2) % Lymph # (Auto) 2.3 (1.2-4.9) X10*3/uL [place] # (Auto) 0.2 (0.1-1.2) X10*3/uL Eos # (Auto) 0.0 (0.0-0.4) X10*3/uL Baso # (Auto) 0.0 (0.0-0.2) X10*3/uL Abs Immat Gran (auto) 0.03 (0.00-0.03) X10*3/uL Absolute Neuts (auto) 3.0 (2.0-8.3) x10*3/uL Absolute Nucleated RBC 0.000 (0.0-0.012) X10*3/uL Nucleated RBC % (auto) 0.0 (0.0-0.2) /100WBC Sodium 141 (135-145) mmol/L Potassium 3.9 (3.3-5.1) mmol/L Chloride 103 (96-108) mmol/L Carbon Dioxide 29 (22-29) mmol/L Anion Gap 13 (12-20) BUN 10 (9-16) mg/dL Creatinine 0.69 (0.5-1.4) mg/dL Estim Creat Clear Calc 109.7 Estimated GFR > 60 Random Glucose 110 (60-115) mg/dL Calcium 8.8 D (8.4-10.2) mg/dL Beta HCG, Quant < 2 mIU/mL Discharge Plan Discharge Clinical Impression: Gastritis Patient Disposition: [facility] Prescriptions: No Action sennosides [senna] 8.6 mg tablet 8.6 mg PO DAILY Qty: 14 0RF docusate sodium [Colace] 100 mg capsule 100 mg PO BID Qty: 20 0RF bisacodyl [Dulcolax (bisacodyl)] 10 mg suppository 10 mg NM DAILY PRN (Reason: constipation) Qty: 12 0RF
[2022-12-01] MEDS: 0.9 % Sodium Chloride 1,000 ML 999 ML IV (08:02)
--- NOTE | 2022-12-01 08:24 | PC.NURSE ---
pt refused zofran. pt continues to vomit and feel nausea. educated pt on effects of zofran.
[2022-12-01 08:33] LABS: HCG Quantitative < 2 mIU/mL
[2022-12-01] MEDS: LORazepam 1 MG TABLET PO (09:31)
--- NOTE | 2022-12-01 10:22 | PC.NURSE ---
pt reports her IV fell out . pt was dressed back in her clothes and reported that she wanted to go to the cafeteria because she needs ice water pt IV was out. pt then reported that her ride was here and she needed to go right now . informed pt the need to wait for d/c and to see the dr. pt stated ok.
--- NOTE | 2022-12-01 10:25 | PC.NURSE ---
pt not in her room. reported to another staff that her ride was here and she couldnt wait any longer
[2022-12-01 10:39] LABS: Appearance Urine Clear; Color Urine Yellow; Glucose Urine UA Negative (Negative); Leukocyte Esterase Urine Negative (Negative); Nitrite Urine Negative (Negative); PH >= 9.0 (5.0-9.0); Specific Gravity - Urine 1.025 (1.005-1.025); UMIC TRIGGER UACC YES; Urine Blood Negative (Negative); Urine Ketones Negative (Negative); Urine Protein 30 (1+) mg/dL (Neg-Trace)
[2022-12-01 10:40] LABS: UPreg QC Valid YES; Urine Pregnancy NEGATIVE (NEGATIVE)
[2022-12-01 10:44] LABS: Bacteria Urine 1+ (None Seen); Hyaline Casts Urine 0-2 /LPF (0-2); RBC Urine 0-2 /HPF (0-2); WBC Urine 0-5 /HPF (0-5)
[2022-12-01 10:53] LABS: Amphetamine Screen Urine Not Detected (Not Detect); Barbiturates, Urine Not Detected (Not Detect); Benzodiazepines Screen Urine Not Detected (Not Detect); Cannabinoid Screen Urine POSITIVE (Not Detect); Cocaine Screen Urine Not Detected (Not Detect); Fentanyl, urine Not Detected (Not Detect); Opiate Screen Urine Not Detected (Not Detect); Phencyclidine Screen Urine Not Detected (Not Detect)
== END 2022-12-01 10:31 | disposition left against medical advice (07) ==
PROVIDERS: Emergency Provider Emergency Medicine
DX: K29.70 Gastritis, unspecified, without bleeding (principal); F41.9 Anxiety disorder, unspecified; F19.10 Other psychoactive substance abuse, uncomplicated; F31.9 Bipolar disorder, unspecified; F12.90 Cannabis use, unspecified, uncomplicated; Z79.899 Other long term (current) drug therapy
CPT/HCPCS: 36415; 80048; 80307; 81001; 81025; 84702; 85025; 96360; 99284

== ENCOUNTER 2022-12-03 06:48 | Emergency (ER) | payer SELFPAY ==
--- NOTE | ~2022-12-03 | US_ITS ---
EXAMINATION: US ABDOMEN COMPLETE CLINICAL INFORMATION: Right upper quadrant and left upper quadrant pain with vomiting. COMPARISON: CT abdomen pelvis 09/29/2022 TECHNIQUE: Real-time imaging of the abdominal viscera. FINDINGS: PANCREAS: Could not be evaluated as it was obscured by bowel gas. ABDOMINAL AORTA: The proximal and distal segments are normal in caliber. The mid aorta was obscured by bowel gas. INFERIOR VENA CAVA: Visualized portions are normal. LIVER: The liver is normal in size. The liver contour is normal. Parenchymal echogenicity is normal. No focal hepatic lesion. There is no intrahepatic biliary duct dilatation seen. GALLBLADDER: The gallbladder is physiologically distended without evidence of stones, sludge, polyps, wall thickening or pericholecystic fluid. COMMON BILE DUCT: Normal in caliber measuring 0 point cm in diameter. RIGHT KIDNEY: No hydronephrosis. No renal calculi or focal parenchymal lesions. The kidney measures 9.3 cm in maximum dimension. LEFT KIDNEY: No hydronephrosis. No renal calculi or focal parenchymal lesions. The kidney measures 8.1 cm in maximum dimension. SPLEEN: Normal. The spleen measures 7.6 cm in maximum dimension. FREE FLUID: None. US/US abdomen complete IMPRESSION: No significant abnormality is seen. The pancreas could not be evaluated as it was obscured by bowel gas.
[2022-12-03 07:02] VITALS: BP 139/88; PULSE 99; RESP 17; TEMP 36.1; O2SAT 100; BMI 25.7
[2022-12-03 07:28] LABS: MANUAL DIFF FLAG NO
[2022-12-03 07:32] LABS: Basophils Percent Auto 0.5 % (0-2); Hematocrit 41.3 % (37.0-47.0); Hemoglobin 13.9 g/dl (12.0-16.0); Imm Gran Abs Auto 0.05 X10*3/uL (0.00-0.03); Imm Gran Pct Auto 0.7 % (0.0-0.4); Lymphocytes Absolute Auto 1.6 X10*3/uL (1.2-4.9); Lymphocytes Percent Auto 20.5 % (20-40); Mean Corpuscular HGB Conc 33.7 g/dl (31.0-35.0); Mean Corpuscular Hemoglobin 28.9 pg (27.0-33.0); Mean Corpuscular Volume 85.9 fL (80.0-98.0); Mean Platelet Volume 8.3 fL (9.4-12.3); Monocytes Absolute Auto 0.3 X10*3/uL (0.1-1.2); Monocytes Percent Auto 4.5 % (2-11); Neutrophils Absolute Auto 5.6 x10*3/uL (2.0-8.3); Neutrophils Percent Auto 73.8 % (45-73); Platelet Count 460 X10*3/uL (160-400); Red Blood Count 4.81 X10*6/uL (4.20-5.50); Red Cell Distribution Width 14.2 % (11.0-16.0); White Blood Count 7.6 X10*3/uL (4.8-10.8)
[2022-12-03 07:38] LABS: Appearance Urine Clear; Color Urine Yellow; Glucose Urine UA Negative (Negative); Leukocyte Esterase Urine Negative (Negative); Nitrite Urine Negative (Negative); Specific Gravity - Urine 1.015 (1.005-1.025); UMIC TRIGGER UACC YES; Urine Blood Negative (Negative); Urine Ketones Negative (Negative); Urine Protein 100 (2+) mg/dL (Neg-Trace)
[2022-12-03 07:39] VITALS: BP 133/96; PULSE 102; RESP 16; O2SAT 100
[2022-12-03 07:41] LABS: Urine Pregnancy NEGATIVE (NEGATIVE)
[2022-12-03 07:42] LABS: UPreg QC Valid YES
[2022-12-03 07:50] LABS: Alanine Aminotransferase 45 U/L (0-31); Albumin Level 4.6 g/dL (3.5-5.0); Alkaline Phosphatase 88 U/L (39-117); Anion Gap 17 (12-20); Aspartate Amino Transferase 50 U/L (5-31); Bilirubin Direct 0.2 mg/dL (0.0-0.5); Bilirubin Total 0.5 mg/dL (0.0-1.0); Blood Urea Nitrogen 11 mg/dL (9-16); Calcium 9.1 mg/dL (8.4-10.2); Carbon Dioxide 26 mmol/L (22-29); Chloride 98 mmol/L (96-108); Creatinine Clr Calc Pharmacy 121.8; Estimated Glomerular Filt Rate > 60; Glucose Random 128 mg/dL (60-115); Lipase 11 U/L (8-78); Sodium 137 mmol/L (135-145); Total Protein 7.6 g/dL (6.5-8.0)
[2022-12-03 07:58] LABS: RBC Urine 0-2 /HPF (0-2); WBC Urine 0-5 /HPF (0-5)
[2022-12-03 07:59] LABS: Bacteria Urine 1+ (None Seen); Hyaline Casts Urine 0-2 /LPF (0-2)
[2022-12-03] MEDS: Ondansetron ODT 4 MG TAB.RAPDIS TRANSLINGU (08:33)
--- NOTE | 2022-12-03 08:40 | ED.ABDPAIN ---
HPI - Abdominal Pain General Chief Complaint: Abdominal Pain Stated Complaint: Abd pain/Vomiting Time Seen by Provider: 12/03/22 08:00 Source: patient Mode of arrival: ambulatory Limitations: no limitations History of Present Illness HPI narrative: 22-year-old female with past medical history of elevated liver enzymes secondary to excessive alcohol intake presents to the emergency department for complaints nausea, vomiting, and abdominal pain x 2 days. She states she was seen in the emergency department on Thursday with a negative test, diagnosed with gastritis, bowel medications are prescribed, and the patient eloped prior to discharge. Today she states she has continued symptoms and has had poor p.o. intake since Thursday. She states her last alcoholic drink was Thursday, she states has 1 glass of wine. She denies any hematemesis, melena, hematochezia , shortness of breath, chest pain, headache, vision changes, diarrhea, or constipation. She denies any recent illness or known sick contacts. MD elicited complaint: abdominal pain Onset (ago): day(s) (2) Pain Consistency: constant Location: RUQ Severity: moderate (6) Quality: aching and sharp Radiation: none Migration to: no migration Exacerbating factors: vomiting and movement Associated symptoms: denies other symptoms Related Data Hx Last Menstrual Period: pt's LMP was sometime in October, upreg negative Patient : No Previous Rx's Medication Instructions Recorded bisacodyl 10 mg rectal suppository [address] DAILY PRN constipation 10/03/22 (Dulcolax (bisacodyl)) #12 ea docusate sodium 100 mg capsule 100 mg PO BID #20 caps 10/03/22 (Colace) sennosides 8.6 mg tablet (senna) 8.6 mg PO DAILY #14 tabs 10/03/22 ondansetron 4 mg disintegrating 4 mg PO Q6H #14 tabs 12/03/22 tablet Allergies Allergy/AdvReac Type Severity Reaction Status Date / Time No Known Allergies Allergy Verified 12/01/22 06:36 Review of Systems Review of Systems In addition to documented HPI above, the additional ROS was obtained: Constitutional: No Weight loss, No Fever, No Chills ENT/Mouth: No Ear Pain, No Nasal Congestion, No Sinus Pain, No Hoarseness, No sore throat, No Rhinorrhea, No Swallowing Difficulty Cardiovascular: No Chest Pain, No SOB Respiratory: No Cough, No Sputum, No Wheezing Gastrointestinal: No Diarrhea, No Constipation, No Abdominal pain Genitourinary: No Dysuria, No Urinary Frequency, No Hematuria, No Urinary Incontinence/retention, No Urgency, No Flank Pain Musculoskeletal: No joint pain, No Myalgias, No Joint Swelling Skin: No Skin Lesions, No rash Neuro: No Weakness, No Numbness, No Paresthesias Yes all other systems are reviewed and are negative [facility] Past Medical History Attestation statement: The following information was validated with the patient. Source: old records reviewed Medical History Bipolar disorder Substance abuse Hx Last Menstrual Period: pt's LMP was sometime in October, negative Social History Social History Alcohol intake: current Alcohol intake frequency: a few times a week Alcohol type: wine Smoked in Last 30 Days: No Use of substances other than those prescribed or required for medical reasons: No Substance Use Type: Marijuana Advance Directives: No Advance Directives Information Provided: No Patient : No Physical Exam ED Vital Signs: Vital Signs - 24 hr 12/03/22 07:02 12/03/22 07:39 12/03/22 09:43 Temperature 97 F Pulse Rate 99 102 H 114 H Respiratory Rate 17 16 15 Blood Pressure 139/88 133/96 H 121/67 Pulse Oximetry 100 100 100 Oxygen Delivery Method Room Air Room Air Room Air BMI result Body Mass Index 25.7 Nursing notes and vital signs reviewed. GENERAL APPEARANCE: A&0 x 4, generally well appearing, no acute distress HENMT: Normal to inspection, atraumatic, face symmetrical. Normal external ears, nose, and oropharynx clear. EYE: PERRLA, EOM intact, structures appear normal NECK: Supple without lymphadenopathy. No stiffness or restricted ROM. CHEST: Normal to inspection HEART: Normal rate and regular rhythm, normal S1/S2, no M/R/G LUNGS: LS CTA, moving air well. Able to speak in complete sentences. No crackles, wheezes, or rhonchi auscultated ABDOMEN: Soft, tender in RUQ, nondistended. Normal bowel sounds noted BACK: No CVAT, no obvious deformity EXTREMITIES: Moving all extremities without difficulty. No cyanosis, clubbing, or edema. Normal capillary refill. NEUROLOGICAL: Alert and oriented, moving all 4 extremities with equal strength. CN not formally tested but appearing grossly intact. Observed to ambulate with normal gait. Cognition normal SKIN: Warm and dry without any lesions, rash, or visible sores PSYCH: Cooperative, normal affect, normal thought process Course Course Course Narrative: 0800: plan for PO zofran and us to rule out liver disease, cholelithiasis, cholecystitis Medical Decision Making Medical Decision Making [facility] Narrative: 22-year-old female with past medical history of elevated liver enzymes secondary to excessive alcohol intake presents to the emergency department for complaints nausea, vomiting, and abdominal pain x 2 days. Zofran and 1 L normal saline bolus given with reduction in nausea and vomiting. IV lorazepam given for complaints of anxiety here in the emergency department. Blood work showing elevated liver enzymes with history of elevation due to excessive alcohol intake. Patient counseled on dangers of drinking alcohol with known elevated liver enzymes. Urinalysis negative for infection or . Abdominal ultrasound showing liver normal size, normal common bile duct, no bilateral hydronephrosis or renal calculi, normal spleen, and physiologically distended gallbladder without evidence of stone, sludge, polyps or wall thickening, or pericholecystic fluid. Patient is safe for discharge at this time with plan to manage discomfort with [id number] Tylenol, NSAIDs, and prescribed antiemetics. Patient educated to increase p.o. intake. HPI, PE, diagnostics, and plan discussed with patient with no unanswered questions at this time. Patient educated to return to the emergency department with new, worsening, or concerning emergent symptoms. Recommended to follow-up with her primary care provider and potentially gastroenterology for further treatment and management. *Refer to Course for additional information on consultations, diagnostic interpretation, consultations, emergency department stay, conversations with patient and family, shared decision making with patient, and more information on medical decision making* Lab Data [facility] Lab Attestation statement: I reviewed the patient's lab results. 12/03/22 07:19 12/03/22 07:19 Labs: Lab Results 12/03/22 12/03/22 12/03/22 Range/Units 07:19 07:19 07:19 WBC 7.6 (4.8-10.8) X10*3/uL RBC 4.81 (4.20-5.50) X10*6/uL Hgb 13.9 (12.0-16.0) g/dl Hct 41.3 (37.0-47.0) % MCV 85.9 (80.0-98.0) fL MCH 28.9 (27.0-33.0) pg MCHC 33.7 (31.0-35.0) g/dl RDW 14.2 (11.0-16.0) % Plt Count 460 H (160-400) X10*3/uL MPV 8.3 L (9.4-12.3) fL Immature Gran % (Auto) 0.7 H (0.0-0.4) % Neut % (Auto) 73.8 H (45-73) % Lymph % (Auto) 20.5 (20-40) % Barbour % (Auto) 4.5 (2-11) % Eos % (Auto) 0.0 (0-4) % Baso % (Auto) 0.5 (0-2) % Lymph # (Auto) 1.6 (1.2-4.9) X10*3/uL Barbour # (Auto) 0.3 (0.1-1.2) X10*3/uL Eos # (Auto) 0.0 (0.0-0.4) X10*3/uL Baso # (Auto) 0.0 (0.0-0.2) X10*3/uL Abs Immat Gran (auto) 0.05 H (0.00-0.03) X10*3/uL Absolute Neuts (auto) 5.6 (2.0-8.3) x10*3/uL Absolute Nucleated RBC 0.000 (0.0-0.012) X10*3/uL Nucleated RBC % (auto) 0.0 (0.0-0.2) /100WBC Sodium 137 (135-145) mmol/L Potassium 4.0 (3.3-5.1) mmol/L Chloride 98 (96-108) mmol/L Carbon Dioxide 26 (22-29) mmol/L Anion Gap 17 (12-20) BUN 11 (9-16) mg/dL Creatinine 0.66 (0.5-1.4) mg/dL Estim Creat Clear Calc 121.8 Estimated GFR > 60 Random Glucose 128 H (60-115) mg/dL Calcium 9.1 (8.4-10.2) mg/dL Total Bilirubin 0.5 (0.0-1.0) mg/dL Direct Bilirubin 0.2 (0.0-0.5) mg/dL AST 50 H (5-31) U/L ALT 45 H (0-31) U/L Alkaline Phosphatase 88 (39-117) U/L Total Protein 7.6 (6.5-8.0) g/dL Albumin 4.6 (3.5-5.0) g/dL Lipase 11 (8-78) U/L Urine Color Yellow Urine Appearance Clear Urine pH 7.0 (5.0-9.0) Ur Specific Apex 1.015 (1.005-1.025) Urine Protein 100 (2+) H (Neg-Trace) mg/dL Urine Glucose (UA) Negative (Negative) mg/dL Urine Ketones Negative (Negative) mg/dL Urine Blood Negative (Negative) Urine Nitrite Negative (Negative) Ur Leukocyte Esterase Negative (Negative) Urine RBC 0-2 (0-2) /HPF Urine WBC 0-5 (0-5) /HPF Ur Squamous Epith Cells 6-10 (0-2) /HPF Urine Bacteria 1+ (None Seen) Hyaline Casts 0-2 (0-2) /LPF Urine Test (NEGATIVE) 12/03/22 Range/Units 07:19 WBC (4.8-10.8) X10*3/uL RBC (4.20-5.50) X10*6/uL Hgb (12.0-16.0) g/dl Hct (37.0-47.0) % MCV (80.0-98.0) fL MCH (27.0-33.0) pg MCHC (31.0-35.0) g/dl RDW (11.0-16.0) % Plt Count (160-400) X10*3/uL MPV (9.4-12.3) fL Immature Gran % (Auto) (0.0-0.4) % Neut % (Auto) (45-73) % Lymph % (Auto) (20-40) % Barbour % (Auto) (2-11) % Eos % (Auto) (0-4) % Baso % (Auto) (0-2) % Lymph # (Auto) (1.2-4.9) X10*3/uL Barbour # (Auto) (0.1-1.2) X10*3/uL Eos # (Auto) (0.0-0.4) X10*3/uL Baso # (Auto) (0.0-0.2) X10*3/uL Abs Immat Gran (auto) (0.00-0.03) X10*3/uL Absolute Neuts (auto) (2.0-8.3) x10*3/uL Absolute Nucleated RBC (0.0-0.012) X10*3/uL Nucleated RBC % (auto) (0.0-0.2) /100WBC Sodium (135-145) mmol/L Potassium (3.3-5.1) mmol/L Chloride (96-108) mmol/L Carbon Dioxide (22-29) mmol/L Anion Gap (12-20) BUN (9-16) mg/dL Creatinine (0.5-1.4) mg/dL Estim Creat Clear Calc Estimated GFR Random Glucose (60-115) mg/dL Calcium (8.4-10.2) mg/dL Total Bilirubin (0.0-1.0) mg/dL Direct Bilirubin (0.0-0.5) mg/dL AST (5-31) U/L ALT (0-31) U/L Alkaline Phosphatase (39-117) U/L Total Protein (6.5-8.0) g/dL Albumin (3.5-5.0) g/dL Lipase (8-78) U/L Urine Color Urine Appearance Urine pH (5.0-9.0) Ur Specific Apex (1.005-1.025) Urine Protein (Neg-Trace) mg/dL Urine Glucose (UA) (Negative) mg/dL Urine Ketones (Negative) mg/dL Urine Blood (Negative) Urine Nitrite (Negative) Ur Leukocyte Esterase (Negative) Urine RBC (0-2) /HPF Urine WBC (0-5) /HPF Ur Squamous Epith Cells (0-2) /HPF Urine Bacteria (None Seen) Hyaline Casts (0-2) /LPF Urine Test NEGATIVE (NEGATIVE) Independent Interpretation I performed an independent interpretation of an: Ultrasound Interpretation: I have independently interpreted the ultrasound as unremarkable with the exception distended gallbladder without evidence cholecystitis/cholelithiasis. Radiology Impression Discussion of test interpretation with radiology: I have reviewed the radiologist's reading. Radiologist Impression: EXAMINATION: US ABDOMEN COMPLETE CLINICAL INFORMATION: Right upper quadrant and left upper quadrant pain with vomiting. COMPARISON: CT abdomen pelvis 09/29/2022 TECHNIQUE: Real-time imaging of the abdominal viscera. FINDINGS: PANCREAS: Could not be evaluated as it was obscured by bowel gas. ABDOMINAL AORTA: The proximal and distal segments are normal in caliber. The mid aorta was obscured by bowel gas. INFERIOR VENA CAVA: Visualized portions are normal. LIVER: The liver is normal in size. The liver contour is normal. Parenchymal echogenicity is normal. No focal hepatic lesion. There is no intrahepatic biliary duct dilatation seen. GALLBLADDER: The gallbladder is physiologically distended without evidence of stones, sludge, polyps, wall thickening or pericholecystic fluid. COMMON BILE DUCT: Normal in caliber measuring 0 point cm in diameter. RIGHT KIDNEY: No hydronephrosis. No renal calculi or focal parenchymal lesions. The kidney measures 9.3 cm in maximum dimension. LEFT KIDNEY: No hydronephrosis. No renal calculi or focal parenchymal lesions. The kidney measures 8.1 cm in maximum dimension. SPLEEN: Normal. The spleen measures 7.6 cm in maximum dimension. FREE FLUID: None. US/US abdomen complete IMPRESSION: No significant abnormality is seen. The pancreas could not be evaluated as it was obscured by bowel gas. ? Dictated By: Adi Doherty MD Signed By: <Electronically signed by Adi Doherty MD in OV> 12/03/22 1007 DD/ 8 TD/TT:? Home Health Clinician: SS Medications Administered Discontinued Medications Generic Name Dose Route Start Last Admin Trade Name Freq PRN Reason Stop Dose Admin Sodium Chloride 1,000 mls @ 999 mls/hr 12/03/22 09:00 12/03/22 10:07 Ns IV 12/03/22 10:00 Infused .Q1H1M AIDAN Infusion Lorazepam 1 mg 12/03/22 09:02 12/03/22 09:11 Lorazepam 2 Mg/Ml Vial IVPUSH 12/03/22 09:03 1 mg ONCE ONE Administration Ondansetron HCl 4 mg 12/03/22 08:07 12/03/22 08:33 Ondansetron Odt 4 Mg Tab.Jay STANTON 12/03/22 08:08 4 mg ONCE ONE Administration Discharge Plan Discharge Clinical Impression: Vomiting, Elevated liver enzymes Patient Disposition: Home, Self-Care Instructions: At-Risk Alcohol Use (ED), Acute Nausea and Vomiting (ED), Acute Abdominal Pain (ED) Additional Instructions: You have received antinausea medication and a saline bolus for treatment of your nausea and vomiting. Antinausea medication has been sent to your preferred pharmacy. Please take as directed. It is recommended that you increase your fluid intake to help with her symptoms. Do not drink any alcoholic beverages. Your ultrasound shows a normal size liver, normal kidneys, and a mildly distended gallbladder. You are safe for discharge at this time. You may manage her discomfort with [id number] Tylenol and/or NSAIDs such as ibuprofen or naproxen. Please return to the emergency department with new, worsening, or concerning emergent symptoms. Please follow-up with your primary care provider for further treatment and management. The number to a Gastroenterology office has been provided to under discharge instructions for further recommendations. Prescriptions: New ondansetron 4 mg tablet,disintegrating 4 mg PO Q6H Qty: 14 0RF No Action sennosides [senna] 8.6 mg tablet 8.6 mg PO DAILY Qty: 14 0RF docusate sodium [Colace] 100 mg capsule 100 mg PO BID Qty: 20 0RF bisacodyl [Dulcolax (bisacodyl)] 10 mg suppository [address] DAILY PRN (Reason: constipation) Qty: 12 0RF Referrals: [facility] [place] [facility] [Provider Group] [facility] [place] Family Medicine [Provider Group] [facility] [place] Primary CareBhavesh [Provider Group] [facility] [place] Primary CareBaljinder [Provider Group] Stand Alone Forms: Work/School Release Print Language: Ukrainian
[2022-12-03] MEDS: 0.9 % Sodium Chloride 1,000 ML 999 ML IV (08:57)
[2022-12-03] MEDS: LORazepam 2 MG/ML VIAL 1 MG IVPUSH (09:11)
--- NOTE | 2022-12-03 09:20 | PC.NURSE ---
patient a/ox4 . darynla . heart rate regular at 99 beats per minute . breathing even and unlabored . lungs clear throughout . skin pink warm and dry . abdomen soft . patient reports mid epigastria pain that radiates to right . Also reports vomiting that began on Thursday . No rebound tenderness noted . sublingual zofran given as ordered . IV placed in right A.C . Normal saline started as ordered . Patient reported feeling anxious and has history of anxiety obtained an order for IVP Ativan . administered as ordered . patient aware of plan of care .
[2022-12-03 09:43] VITALS: BP 121/67; PULSE 114; RESP 15; O2SAT 100
--- NOTE | 2022-12-03 09:44 | PC.NURSE ---
Ultrasound at bedside for imaging . patient aware of plan of care .
[2022-12-03] MEDS: ondansetron HCL 4 MG/2 ML VIAL IVPUSH (12:12)
[2022-12-03 12:16] VITALS: BP 133/85; PULSE 102; RESP 15; O2SAT 99
--- NOTE | 2022-12-03 12:20 | PC.NURSE ---
Patient A/Ox4 . VSS . went over discharge instructions as ordered by provider . patient to return to Ed if symptoms worsen . patient to follow up with primary care . No questions at this time .
== END 2022-12-03 12:22 | disposition home or self-care (01) ==
PROVIDERS: Emergency Provider Emergency Medicine
DX: R11.10 Vomiting, unspecified (principal); R74.8 Abnormal levels of other serum enzymes; R10.11 Right upper quadrant pain; F19.10 Other psychoactive substance abuse, uncomplicated; F41.9 Anxiety disorder, unspecified
CPT/HCPCS: 36415; 76700; 80048; 80076; 81001; 81025; 83690; 85025; 96361; 96374; 96375; 99284; J2060; J2405

== ENCOUNTER 2023-07-03 15:43 | Emergency (ER) | payer OTHER, SELFPAY ==
--- NOTE | ~2023-07-03 | US_ITS ---
EXAMINATION: US APPENDIX CLINICAL INFORMATION: Right neck palpable lump. COMPARISON: CT scan of the abdomen and pelvis dated 09/29/2022. TECHNIQUE: Linear transducer grayscale and color Doppler examination with attention to right lower quadrant of the abdomen. FINDINGS: The appendix is not confidently identified. No abnormality was seen. Color Doppler showed no abnormal vascular flow. US/US appendix IMPRESSION: Nonvisualization of the appendix without overt evidence for acute appendicitis. If pain persists or worsens, a CT scan should be considered.
--- NOTE | ~2023-07-03 | CT_ITS ---
EXAMINATION: CT ABDOMEN AND PELVIS WITH CONTRAST CLINICAL INFORMATION: Right lower quadrant pain for one month intermittently COMPARISON: 09/29/2022 TECHNIQUE: Multidetector volumetric images were obtained from the superior aspect of the liver through the pubic symphysis following administration 85 mL of Omnipaque 350 intravenous contrast. Sagittal and coronal reformatted images were obtained on the technologist's workstation. Oral contrast: No This CT examination was performed using dose optimization techniques as appropriate, variously including the following: *Automated exposure control *Adjustment of mA and/or kV according to patient size (this includes techniques or standardized protocols for targeted exams where dose is matched to indication/reason for exam; i.e. extremities or head) *Use of iterative reconstruction technique DLP: 586 mGy-cm FINDINGS: LUNG BASES: The visualized lung bases are unremarkable. LIVER, GALLBLADDER, AND BILIARY TREE: The liver is normal in size, shape, and attenuation. No focal hepatic lesion or biliary ductal dilatation is present. The gallbladder is unremarkable with no evidence of radiopaque gallstones, gallbladder wall thickening, or obvious pericholecystic inflammatory changes. PANCREAS: Unremarkable. SPLEEN: Unremarkable. ADRENAL GLANDS: Unremarkable. KIDNEYS AND URETERS: The kidneys are normal in size, shape, and attenuation. No hydronephrosis, hydroureter, or calculi seen. No perinephric stranding. BLADDER: Unremarkable. GASTROINTESTINAL TRACT: The stomach is unremarkable. Normal caliber small bowel. No obstruction. Normal appendix. No colonic wall thickening or inflammation. No free air. Trace pelvic free fluid. ABDOMINAL WALL: No significant hernia is appreciated. LYMPH NODES: Normal. VASCULAR: Unremarkable. PELVIC VISCERA: The uterus and adnexa are unremarkable. OSSEOUS STRUCTURES: Unremarkable. CT/CT abdomen pelvis w IV con IMPRESSION: 1. No acute findings of the abdomen or pelvis. Normal appendix. 2. Trace pelvic free fluid is likely physiologic. Fleischner guidelines were followed.
[2023-07-03 15:48] VITALS: BP 134/80; PULSE 86; RESP 19; TEMP 36.1; O2SAT 98; BMI 34.4
--- NOTE | 2023-07-03 15:48 | ED_ITS ---
HPI - General Adult General Chief complaint: Abdominal Pain Stated complaint: Appendix pain Time Seen by Provider: 07/03/23 21:04 Source: patient Mode of arrival: ambulatory Limitations: no limitations History of Present Illness HPI narrative: 23-year-old female with no major medical problems presents with right lower quadrant tenderness. Symptoms started 1 month ago. There are Mitten. The pain is sharp. Does not radiate. There is no clear relieving or exacerbating features. Presents had no surgeries in the past. She denies any urinary frequency, urgency or dysuria. She has had some loose bowel movements. She also does have nausea vomiting from time to time. Patient denies any vaginal bleeding or discharge. Related Data Previous Rx's Medication Instructions Recorded bisacodyl 10 mg rectal suppository 10 mg NE DAILY PRN constipation 10/03/22 (Dulcolax (bisacodyl)) #12 ea docusate sodium 100 mg capsule 100 mg PO BID #20 caps 10/03/22 (Colace) sennosides 8.6 mg tablet (senna) 8.6 mg PO DAILY #14 tabs 10/03/22 ondansetron 4 mg disintegrating 4 mg PO Q6H #14 tabs 12/03/22 tablet metoclopramide HCl 10 mg tablet 10 mg PO Q6H PRN Abdominal pain, 07/03/23 (Reglan) nausea, vomiting #20 tabs Allergies Allergy/AdvReac Type Severity Reaction Status Date / Time No Known Allergies Allergy Verified 07/03/23 15:48 Review of Systems 2 Review of Systems: CONSTITUTIONAL: Denies weight loss, fever and chills. HEENT: Denies changes in vision and hearing. RESPIRATORY: Denies SOB and cough. CV: Denies palpitations no CP. GI: + abdominal pain, nausea, vomiting and diarrhea. : Denies dysuria and urinary frequency. MSK: Denies myalgia and joint pain. SKIN: Denies rash and pruritus. NEUROLOGICAL: Denies headache and syncope. PSYCHIATRIC: Denies recent changes in mood. Denies anxiety and depression. All other ROS are negative unless in HPI PMFSH Past Medical History Medical History Bipolar disorder Substance abuse Social History Social History Alcohol intake: former Smoked in Last 30 Days: No Use of substances other than those prescribed or required for medical reasons: No Substance Use Type: Marijuana Advance Directives: No Advance Directives Information Provided: No Physical Exam ED Vital Signs: Vital Signs - 24 hr 07/03/23 15:48 07/03/23 20:02 07/03/23 20:32 Temperature 97 F 98.1 F 98.9 F Pulse Rate 86 77 76 Respiratory Rate 19 18 16 Blood Pressure 134/80 111/74 111/76 Pulse Oximetry 98 100 100 Oxygen Delivery Method Room Air Room Air Room Air 07/03/23 22:09 Temperature 99.1 F Pulse Rate 88 Respiratory Rate 18 Blood Pressure 112/60 Pulse Oximetry 99 Oxygen Delivery Method Room Air BMI result Body Mass Index 34.4 GEN: Well developed, no acute distress, alert, oriented HEENT: Normocephalic, atraumatic, normal external ears, nose appears normal, no oropharyngeal edema or exudates Eyes: Normal to appearance Neck: Supple, no lymphadenopathy Respiratory: Talks in complete sentences, no respiratory distress, clear to auscultation bilaterally Cardiovascular: Regular rate and rhythm, no murmurs rubs or gallops Abdomen: Abdomen is soft, tenderness in the right lower quadrant with guarding no rebound Back: No CVA tenderness Extremities: No clubbing cyanosis or edema Neurologic: No focal neurologic deficits, cranial nerves 2-12 intact, strength is 5/5 bilaterally Skin: No rash Course Course Course Narrative: RME performed by Shalonda Sharpe PA-C. Patient is a 23 year old assigned female at presenting to the emergency department with RLQ abdominal pain. Labs and imaging ordered. Patient placed back in the waiting room pending room availability and results. Reevaluation(s) Reevaluation #1: The appendix was not visualized. Will order CT scan to follow-up given the tenderness. Time: 21:39 Reevaluation #2: The workup is complete. CT scan only showed physiologic free fluid in the pelvis. There are no other significant abnormalities. At this point, differential diagnosis could be bacterial overgrowth, IBS. She has a follow-up with her primary care provider this week. Will try Reglan 30 minutes before meals and before bed. She went her return for any worsening or concerning symptoms. Time: 22:32 Medications Administered Discontinued Medications Generic Name Dose Route Start Last Admin Trade Name Freq PRN Reason Stop Dose Admin Iohexol 100 ml 07/03/23 21:46 07/03/23 21:46 Iohexol 350 Mg/Ml 100 Ml Infus..Btl IV 07/03/23 21:47 85 ml ONCE ONE Administration Ketorolac Tromethamine 15 mg 07/03/23 21:22 07/03/23 21:51 Ketorolac Tromethamine 15 Mg/Ml Vial IVPUSH 07/03/23 21:23 15 mg ONCE ONE Administration Medical Decision Making Medical Decision Making [facility] Narrative: Patient presents with right lower quadrant pain. The story is atypical for acute appendicitis. Possible diagnosis could also be IBD specifically Crohn's disease. Other diagnoses include IBS, IBD, mesenteric adenitis is, pyelonephritis, UTI, renal colic. An ultrasound was ordered prior to my evaluation. Routine laboratory testing will also be performed. May consider CT scan if ultrasound is unremarkable. Differential Diagnosis Differential Diagnoses: The differential diagnosis associated with the presentation includes (See above) Admission/Observation Consideration of admission/observation: Escalation of care including admission/observation considered Lab Data [facility] Lab Attestation statement: I reviewed the patient's lab results. 07/03/23 16:05 07/03/23 16:05 Labs: Lab Results 07/03/23 07/03/23 07/03/23 Range/Units 16:05 16:05 16:05 WBC 5.4 (4.8-10.8) X10*3/uL RBC 4.26 (4.20-5.50) X10*6/uL Hgb 12.5 (12.0-16.0) g/dl Hct 37.5 (37.0-47.0) % MCV 88.0 (80.0-98.0) fL MCH 29.3 (27.0-33.0) pg MCHC 33.3 (31.0-35.0) g/dl RDW 13.2 (11.0-16.0) % Plt Count 398 (160-400) X10*3/uL MPV 8.5 L (9.4-12.3) fL Immature Gran % (Auto) 0.4 (0.0-0.4) % Neut % (Auto) 60.1 (45-73) % Lymph % (Auto) 32.1 (20-40) % [place] % (Auto) 6.6 (2-11) % Eos % (Auto) 0.4 (0-4) % Baso % (Auto) 0.4 (0-2) % Lymph # (Auto) 1.7 (1.2-4.9) X10*3/uL [place] # (Auto) 0.4 (0.1-1.2) X10*3/uL Eos # (Auto) 0.0 (0.0-0.4) X10*3/uL Baso # (Auto) 0.0 (0.0-0.2) X10*3/uL Abs Immat Gran (auto) 0.02 (0.00-0.03) X10*3/uL Absolute Neuts (auto) 3.3 (2.0-8.3) x10*3/uL Absolute Nucleated RBC 0.000 (0.0-0.012) X10*3/uL Nucleated RBC % (auto) 0.0 (0.0-0.2) /100WBC Sodium 139 (135-145) mmol/L Potassium 4.1 (3.3-5.1) mmol/L Chloride 107 (96-108) mmol/L Carbon Dioxide 26 (22-29) mmol/L Anion Gap 10 L (12-20) BUN 8 L (9-16) mg/dL Creatinine 0.70 (0.5-1.4) mg/dL Estim Creat Clear Calc 117.0 Estimated GFR > 60 Random Glucose 88 (60-115) mg/dL Calcium 9.9 D (8.4-10.2) mg/dL Magnesium 1.9 (1.6-2.6) mg/dL Total Bilirubin 0.2 (0.0-1.0) mg/dL AST 18 (5-31) U/L ALT 12 (0-31) U/L Alkaline Phosphatase 73 (39-117) U/L Total Protein 7.2 (6.5-8.0) g/dL Albumin 4.3 (3.5-5.0) g/dL Beta HCG, Quant < 2 mIU/mL Urine Color Urine Appearance Urine pH (5.0-9.0) Ur Specific [place] (1.005-1.025) Urine Protein (Neg-Trace) mg/dL Urine Glucose (UA) (Negative) mg/dL Urine Ketones (Negative) mg/dL Urine Blood (Negative) Urine Nitrite (Negative) Ur Leukocyte Esterase (Negative) 07/03/23 Range/Units 16:05 WBC (4.8-10.8) X10*3/uL RBC (4.20-5.50) X10*6/uL Hgb (12.0-16.0) g/dl Hct (37.0-47.0) % MCV (80.0-98.0) fL MCH (27.0-33.0) pg MCHC (31.0-35.0) g/dl RDW (11.0-16.0) % Plt Count (160-400) X10*3/uL MPV (9.4-12.3) fL Immature Gran % (Auto) (0.0-0.4) % Neut % (Auto) (45-73) % Lymph % (Auto) (20-40) % [place] % (Auto) (2-11) % Eos % (Auto) (0-4) % Baso % (Auto) (0-2) % Lymph # (Auto) (1.2-4.9) X10*3/uL [place] # (Auto) (0.1-1.2) X10*3/uL Eos # (Auto) (0.0-0.4) X10*3/uL Baso # (Auto) (0.0-0.2) X10*3/uL Abs Immat Gran (auto) (0.00-0.03) X10*3/uL Absolute Neuts (auto) (2.0-8.3) x10*3/uL Absolute Nucleated RBC (0.0-0.012) X10*3/uL Nucleated RBC % (auto) (0.0-0.2) /100WBC Sodium (135-145) mmol/L Potassium (3.3-5.1) mmol/L Chloride (96-108) mmol/L Carbon Dioxide (22-29) mmol/L Anion Gap (12-20) BUN (9-16) mg/dL Creatinine (0.5-1.4) mg/dL Estim Creat Clear Calc Estimated GFR Random Glucose (60-115) mg/dL Calcium (8.4-10.2) mg/dL Magnesium (1.6-2.6) mg/dL Total Bilirubin (0.0-1.0) mg/dL AST (5-31) U/L ALT (0-31) U/L Alkaline Phosphatase (39-117) U/L Total Protein (6.5-8.0) g/dL Albumin (3.5-5.0) g/dL Beta HCG, Quant mIU/mL Urine Color Yellow Urine Appearance Clear Urine pH 6.5 (5.0-9.0) Ur Specific [place] 1.020 (1.005-1.025) Urine Protein Negative (Neg-Trace) mg/dL Urine Glucose (UA) Negative (Negative) mg/dL Urine Ketones Negative (Negative) mg/dL Urine Blood Negative (Negative) Urine Nitrite Negative (Negative) Ur Leukocyte Esterase Negative (Negative) Independent Interpretation I performed an independent interpretation of an: Ultrasound (Appendix not visualized) Radiology Impression Discussion of test interpretation with radiology: I have reviewed the radiologist's reading. Radiologist Impression: US/US appendix IMPRESSION: Nonvisualization of the appendix without overt evidence for acute appendicitis. If pain persists or worsens, a CT scan should be considered. Dictated By: Royce Whitehead MD Signed By: <Electronically signed by Royce Whitehead MD in OV> 07/03/[address]/CT abdomen pelvis w IV con IMPRESSION: 1.? No acute findings of the abdomen or pelvis. Normal appendix. 2.? Trace pelvic free fluid is likely physiologic. ? Fleischner guidelines were followed. Dictated By: Angel Claros MD Signed By: <Electronically signed by Angel Claros MD in OV> 07/03/23 2214 Discharge Plan Discharge Clinical Impression: Abdominal pain Patient Disposition: Home, Self-Care Instructions: Abdominal Pain (ED) Additional Instructions: You may take metoclopramide 10 mg 30 minutes before each meal and before bedtime. This can help with both nausea and motility related issues. Prescriptions: New metoclopramide HCl [Reglan] 10 mg tablet 10 mg PO Q6H PRN (Reason: Abdominal pain, nausea, vomiting) Qty: 20 0RF Rx Instructions: You may take this 30 minutes before each meal and 30 minutes before bed No Action ondansetron 4 mg tablet,disintegrating 4 mg PO Q6H Qty: 14 0RF sennosides [senna] 8.6 mg tablet 8.6 mg PO DAILY Qty: 14 0RF docusate sodium [Colace] 100 mg capsule 100 mg PO BID Qty: 20 0RF bisacodyl [Dulcolax (bisacodyl)] 10 mg suppository 10 mg NE DAILY PRN (Reason: constipation) Qty: 12 0RF Referrals: Steve Beach [Physician] - 1 week
[2023-07-03 16:11] LABS: MANUAL DIFF FLAG NO
[2023-07-03 16:12] LABS: Basophils Percent Auto 0.4 % (0-2); Eosinophils Percent Auto 0.4 % (0-4); Hematocrit 37.5 % (37.0-47.0); Hemoglobin 12.5 g/dl (12.0-16.0); Imm Gran Abs Auto 0.02 X10*3/uL (0.00-0.03); Imm Gran Pct Auto 0.4 % (0.0-0.4); Lymphocytes Absolute Auto 1.7 X10*3/uL (1.2-4.9); Lymphocytes Percent Auto 32.1 % (20-40); Mean Corpuscular HGB Conc 33.3 g/dl (31.0-35.0); Mean Corpuscular Hemoglobin 29.3 pg (27.0-33.0); Mean Platelet Volume 8.5 fL (9.4-12.3); Monocytes Absolute Auto 0.4 X10*3/uL (0.1-1.2); Monocytes Percent Auto 6.6 % (2-11); Neutrophils Absolute Auto 3.3 x10*3/uL (2.0-8.3); Neutrophils Percent Auto 60.1 % (45-73); Platelet Count 398 X10*3/uL (160-400); Red Blood Count 4.26 X10*6/uL (4.20-5.50); Red Cell Distribution Width 13.2 % (11.0-16.0); White Blood Count 5.4 X10*3/uL (4.8-10.8)
[2023-07-03 16:14] LABS: Appearance Urine Clear; Color Urine Yellow; Glucose Urine UA Negative (Negative); Leukocyte Esterase Urine Negative (Negative); Nitrite Urine Negative (Negative); PH 6.5 (5.0-9.0); Urine Blood Negative (Negative); Urine Ketones Negative (Negative); Urine Protein Negative (Neg-Trace)
[2023-07-03 16:27] LABS: Alanine Aminotransferase 12 U/L (0-31); Albumin Level 4.3 g/dL (3.5-5.0); Alkaline Phosphatase 73 U/L (39-117); Anion Gap 10 (12-20); Aspartate Amino Transferase 18 U/L (5-31); Bilirubin Total 0.2 mg/dL (0.0-1.0); Blood Urea Nitrogen 8 mg/dL (9-16); Calcium 9.9 mg/dL (8.4-10.2); Carbon Dioxide 26 mmol/L (22-29); Chloride 107 mmol/L (96-108); Estimated Glomerular Filt Rate > 60; Glucose Random 88 mg/dL (60-115); Magnesium 1.9 mg/dL (1.6-2.6); Potassium 4.1 mmol/L (3.3-5.1); Sodium 139 mmol/L (135-145); Total Protein 7.2 g/dL (6.5-8.0)
[2023-07-03 16:38] LABS: HCG Quantitative < 2 mIU/mL
[2023-07-03 20:02] VITALS: BP 111/74; PULSE 77; RESP 18; TEMP 36.7; O2SAT 100
[2023-07-03 20:32] VITALS: BP 111/76; PULSE 76; RESP 16; TEMP 37.2; O2SAT 100
--- NOTE | 2023-07-03 20:36 | PC.NURSE ---
pt reports intermittent abd pain in RLQ for 1 month but it increased yesterday and she decided to come in. N/V has been happening on and off for a couple weeks. Nothing improves symptoms. Pt also feels very tired and reports fatigue that is unusual from baseline.
[2023-07-03] MEDS: iohexoL 350 MG/ML 100 ML INFUS..BTL IV (21:46)
[2023-07-03] MEDS: Ketorolac Tromethamine 15 MG/ML VIAL IVPUSH (21:51)
[2023-07-03 22:09] VITALS: BP 112/60; PULSE 88; RESP 18; TEMP 37.3; O2SAT 99
== END 2023-07-03 22:44 | disposition home or self-care (01) ==
PROVIDERS: Physician Assistant Medical; Emergency Provider Emergency Medicine; PCP Internal Medicine
DX: R10.31 Right lower quadrant pain (principal); F19.10 Other psychoactive substance abuse, uncomplicated; F12.90 Cannabis use, unspecified, uncomplicated
CPT/HCPCS: 36415; 74177; 76705; 80053; 81003; 83735; 84702; 85025; 96374; 99284; J1885; Q9967

== ENCOUNTER 2025-02-04 20:41 | Emergency (ER) | payer OTHER, SELFPAY ==
--- NOTE | ~2025-02-04 | CT_ITS ---
CLINICAL HISTORY: RLQ pain CT abdomen and pelvis with contrast Comparison: 07/03/2023 09:37 PM EDT: CTSR: CT ABDOMEN PELVIS W IV CON (08:37 PM CDT) Findings: No consolidation or effusion. The liver, gallbladder, spleen, pancreas, kidneys and adrenal glands are normal in appearance. No bowel obstruction, pneumoperitoneum, or pneumatosis. Moderate fecal loading throughout the colon. Normal appendix. Uterus and adnexa are unremarkable. Small volume free fluid in the pelvis. The bones are intact. IMPRESSION: No acute findings. This document has been electronically signed by: Tato Guzman MD on 02/04/2025 23:14:26
--- NOTE | 2025-02-04 20:42 | ED_ITS ---
HPI - Abdominal Pain General Chief Complaint: Abdominal Pain Stated Complaint: lower right abd pain Time Seen by Provider: 02/04/25 21:47 Source: patient Mode of arrival: ambulatory Limitations: no limitations History of Present Illness ED Provider: Dr. Richelle Haider HPI narrative: patient comes to the emergency room complaining of right lower quadrant pain. Patient states that the pain started a few hours ago, approximately 6 hours. Patient denies nausea vomiting or diarrhea, denies vaginal bleeding, denies constipation. patient states it is worse when she walks. Related Data Previous Rx's ?Medication ?Instructions ?Recorded bisacodyl 10 mg rectal suppository 10 mg NE DAILY PRN constipation 10/03/22 (Dulcolax (bisacodyl)) #12 ea docusate sodium 100 mg capsule 100 mg PO BID #20 caps 10/03/22 (Colace) sennosides 8.6 mg tablet (senna) 8.6 mg PO DAILY #14 tabs 10/03/22 ondansetron 4 mg disintegrating 4 mg PO Q6H #14 tabs 12/03/22 tablet metoclopramide HCl 10 mg tablet 10 mg PO Q6H PRN Abdominal pain, 07/03/23 (Reglan) nausea, vomiting #20 tabs Allergies Allergy/AdvReac Type Severity Reaction Status Date / Time No Known Allergies Allergy Verified 02/04/25 20:45 Review of Systems Review of Systems Constitutional : No Weight loss, No Fever, No Chills, No Night Sweats, No Fatigue, No Malaise ENT/Mouth : No Hearing loss, No Ear Pain, No Nasal Congestion, No Sinus Pain, No Hoarseness, No sore throat, No Rhinorrhea, No Swallowing Difficulty Eyes: No Eye Pain, No Swelling, No Redness, No Foreign Body, No Discharge, No Vision Changes Cardiovascular : No Chest Pain, No SOB, No Dyspnea on Exertion, No Orthopnea, No Edema, No Palpitations Respiratory : No Cough, No Sputum, No Wheezing, No Smoke Exposure, No Dyspnea Gastrointestinal : No Nausea, No Vomiting, No Diarrhea, No Constipation, Complaining of right lower quadrant pain, denies hematochezia or melena, patient states the pain is worse with walking Genitourinary : no irregular bleeding, No Dysuria, No Urinary Frequency, No Hematuria, No Urinary Incontinence, No Urgency, No Flank Pain, No Urinary Flow Changes, No Hesitancy Musculoskeletal : No joint pain, No Myalgias, No Joint Swelling Skin : No Skin Lesions, No rash Neuro : No Weakness, No Numbness, No Paresthesias, No Loss of Consciousness, No Dizziness, No Headache Psych : No Anxiety/Panic, No Depression, No SI/HI/AH/VH, No Social Issues, Heme/Lymph: No Bruising, No Bleeding,No Lymphadenopathy Endocrine : No Polyuria, No Polydipsia, No Temperature Intolerance [facility] Past Medical History Medical History Substance abuse Bipolar disorder Social History Social History Alcohol intake: former Substance Use Type: Marijuana Advance Directives: No Advance Directives Information Provided: No Physical Exam ED Vital Signs: Vital Signs - 24 hr 02/04/25 20:43 Temperature 98.0 F Pulse Rate 98 Respiratory Rate 18 Blood Pressure 120/87 Pulse Oximetry 100 Oxygen Delivery Method Room Air BMI result Body Mass Index 32.2 Const Other: Appearance: Alert. Oriented X3. No acute distress. Eyes: Pupils equal, round and reactive to light. ENT: Pharynx normal. Neck: Normal inspection. Neck supple. No lymph nodes noted. No crepitus CVS: Normal heart rate and rhythm. Pulses normal. Normal S1 and S2 Respiratory: No respiratory distress. Breath sounds normal. No Wheezing. No rales Abdomen: Soft , my discomfort to palpation in the right lower quadrant, no rebound or guarding. Skin: Skin warm and dry. Normal skin color. Normal skin turgor. Extremities: No lower extremity edema. No Lacerations. No Rash Neuro: Oriented X 3. No motor deficit. No sensory deficit. Moving all extremities. No slurred speech. CN 2 through 12 grossly intact Psych: calm, cooperative, normal affect Course Course Course Narrative: This is an RME performed by Odette Toussaint CNP: Additional HPI, ROS, PE not included below will be deferred to primary provider. Patient is a 25-year-old female presents to the emergency department for evaluation sudden onset RLQ abdominal pain since 17:00 this evening. Hurts to ambulate, walk, use the bathroom, pain increases when urinating. Denies nausea, vomiting, constipation, diarrhea, abnormal vaginal discharge or bleeding. Denies concern for , LMP 01/22/2025. Plan: Serum labs, urinalysis, hCG Medical Decision Making Medical Decision Making [facility] Narrative: My interpretation of labs: No significant abnormality patient's hematology, electrolytes within normal limits. However, glucose 58. LFTs within normal limits, lipase normal, hCG negative. Since patient is NPO, as we are ruling out appendicitis, patient will be given D5 normal saline for her hypoglycemia. Patient awake alert, asymptomatic. CT scan does not show any acute abnormality focused improved to 105 seems that patient is source of pain is since likely musculoskeletal, states that it is worse when she moves her leg in certain way. I reviewed patient's medical records, patient has been evaluated multiple times for right lower quadrant pain over the last few years patient received also ketorolac, patient feeling much better. Differential Diagnosis Differential Diagnoses: The differential diagnosis associated with the presentation includes ( As above) Admission/Observation Consideration of admission/observation: Escalation of care including admission/observation considered ( given patient's recurrent symptoms, observation was considered) Lab Data [facility] Lab Attestation statement: I reviewed the patient's lab results. 02/04/25 21:01 02/04/25 21:01 Labs: Lab Results 02/04/25 02/04/25 Range/Units 21:01 23:04 WBC 6.2 (4.8-10.8) X10*3/uL RBC 4.24 (4.20-5.50) X10*6/uL Hgb 12.5 (12.0-16.0) g/dl Hct 36.6 L (37.0-47.0) % MCV 86.3 (80.0-98.0) fL MCH 29.5 (27.0-33.0) pg MCHC 34.2 (31.0-35.0) g/dl RDW 13.2 (11.0-16.0) % Plt Count 386 (160-400) X10*3/uL MPV 8.4 L (9.4-12.3) fL Immature Gran % (Auto) 0.5 H (0.0-0.4) % Neut % (Auto) 50.1 (45-73) % Lymph % (Auto) 39.8 (20-40) % [place] % (Auto) 8.5 (2-11) % Eos % (Auto) 0.6 (0-4) % Baso % (Auto) 0.5 (0-2) % Lymph # (Auto) 2.5 (1.2-4.9) X10*3/uL [place] # (Auto) 0.5 (0.1-1.2) X10*3/uL Eos # (Auto) 0.0 (0.0-0.4) X10*3/uL Baso # (Auto) 0.0 (0.0-0.2) X10*3/uL Abs Immat Gran (auto) 0.03 (0.00-0.03) X10*3/uL Absolute Neuts (auto) 3.1 (2.0-8.3) x10*3/uL Absolute Nucleated RBC 0.000 (0.0-0.012) X10*3/uL Nucleated RBC % (auto) 0.0 (0.0-0.2) /100WBC Sodium 143 (135-145) mmol/L Potassium 3.9 (3.3-5.1) mmol/L Chloride 111 H (96-108) mmol/L Carbon Dioxide 25 (22-29) mmol/L Anion Gap 11 L (12-20) BUN 9 (9-16) mg/dL Creatinine 0.61 (0.5-1.4) mg/dL Estim Creat Clear Calc 127.4 Estimated GFR > 60 POC Glucose 105 (60-115) mg/dL Random Glucose 58 L* (60-115) mg/dL Calcium 8.8 D (8.4-10.2) mg/dL Total Bilirubin 0.1 (0.0-1.0) mg/dL Direct Bilirubin < 0.2 (0.0-0.5) mg/dL AST 22 (5-31) U/L ALT 26 (0-31) U/L Alkaline Phosphatase 88 (39-117) U/L C-Reactive Protein 0.14 (< or = 0.50) mg/dL Total Protein 7.4 (6.5-8.0) g/dL Albumin 4.2 (3.5-5.0) g/dL Lipase 24 (8-78) U/L Beta HCG, Quant < 2 mIU/mL Urine Color Yellow Urine Appearance Clear Urine pH 6.0 (5.0-9.0) Ur Specific [place] 1.020 (1.005-1.025) Urine Protein Negative (Neg-Trace) mg/dL Urine Glucose (UA) Negative (Negative) mg/dL Urine Ketones Negative (Negative) mg/dL Urine Blood Negative (Negative) Urine Nitrite Negative (Negative) Ur Leukocyte Esterase Negative (Negative) Urine Opiates Screen Not Detected (Not Detect) Ur Buprenorphine Scrn Not Detected (Not Detect) ng/mL Ur Oxycodone Screen Not Detected (Not Detect) ng/mL Urine Methadone Screen Not Detected (Not Detect) ng/mL Urine Fentanyl Screen Not Detected (Not Detect) Ur Barbiturates Screen Not Detected (Not Detect) Ur Phencyclidine Scrn Not Detected (Not Detect) Ur Amphetamines Screen Not Detected (Not Detect) U Benzodiazepines Scrn Not Detected (Not Detect) Urine Cocaine Screen Not Detected (Not Detect) U Marijuana (THC) Screen Not Detected (Not Detect) Independent Interpretation I performed an independent interpretation of an: CT Scan Radiology Impression Discussion of test interpretation with radiology: I have reviewed the radiologist's reading. Radiologist Impression: No consolidation or effusion. The liver, gallbladder, spleen, pancreas, kidneys and adrenal glands are normal in appearance. No bowel obstruction, pneumoperitoneum, or pneumatosis. Moderate fecal loading throughout the colon. Normal appendix. Uterus and adnexa are unremarkable. Small volume free fluid in the pelvis. The bones are intact. IMPRESSION: No acute findings. Medications Administered Generic Name Dose Route Start Last Admin Trade Name Freq PRN Reason Stop Dose Admin Dextrose/Sodium Chloride 1,000 mls @ 125 mls/hr 02/04/25 22:00 02/04/25 22:15 D5ns IVCONT 125 mls/hr .Q8H AIDAN Administration Discontinued Medications Generic Name Dose Route Start Last Admin Trade Name Freq PRN Reason Stop Dose Admin Iohexol 85 ml 02/04/25 22:27 02/04/25 22:28 Iohexol 350 Mg/Ml 100 Ml Infus..Btl IV 02/04/25 22:28 85 ml ONCE ONE Administration Critical Care Time Critical Care Time Critical Care Time: Yes Total Critical Care Time: 35 Attestation: I have personally provided critical care time. Time includes review of lab data, radiology results, discussion with consultants, and monitoring for potential decompensation. Intervention performed as documented. Discharge Plan Discharge Clinical Impression: Right lower quadrant abdominal pain Patient Disposition: Home, Self-Care Instructions: Abdominal Pain (ED) Additional Instructions: Please follow-up with your primary care physician tomorrow. If you have any worsening or new symptoms, please return to the emergency room or call 911 Prescriptions: No Action ondansetron 4 mg tablet,disintegrating 4 mg PO Q6H Qty: 14 0RF sennosides [senna] 8.6 mg tablet 8.6 mg PO DAILY Qty: 14 0RF docusate sodium [Colace] 100 mg capsule 100 mg PO BID Qty: 20 0RF bisacodyl [Dulcolax (bisacodyl)] 10 mg suppository 10 mg NE DAILY PRN (Reason: constipation) Qty: 12 0RF metoclopramide HCl [Reglan] 10 mg tablet 10 mg PO Q6H PRN (Reason: Abdominal pain, nausea, vomiting) Qty: 20 0RF Rx Instructions: You may take this 30 minutes before each meal and 30 minutes before bed Print Language: Samoan
[2025-02-04 20:43] VITALS: BP 120/87; PULSE 98; RESP 18; TEMP 36.7; O2SAT 100; BMI 32.2
[2025-02-04 21:07] LABS: MANUAL DIFF FLAG NO
[2025-02-04 21:09] LABS: Basophils Percent Auto 0.5 % (0-2); Eosinophils Percent Auto 0.6 % (0-4); Hematocrit 36.6 % (37.0-47.0); Hemoglobin 12.5 g/dl (12.0-16.0); Imm Gran Abs Auto 0.03 X10*3/uL (0.00-0.03); Imm Gran Pct Auto 0.5 % (0.0-0.4); Lymphocytes Absolute Auto 2.5 X10*3/uL (1.2-4.9); Lymphocytes Percent Auto 39.8 % (20-40); Mean Corpuscular HGB Conc 34.2 g/dl (31.0-35.0); Mean Corpuscular Hemoglobin 29.5 pg (27.0-33.0); Mean Corpuscular Volume 86.3 fL (80.0-98.0); Mean Platelet Volume 8.4 fL (9.4-12.3); Monocytes Absolute Auto 0.5 X10*3/uL (0.1-1.2); Monocytes Percent Auto 8.5 % (2-11); Neutrophils Absolute Auto 3.1 x10*3/uL (2.0-8.3); Neutrophils Percent Auto 50.1 % (45-73); Platelet Count 386 X10*3/uL (160-400); Red Blood Count 4.24 X10*6/uL (4.20-5.50); Red Cell Distribution Width 13.2 % (11.0-16.0); White Blood Count 6.2 X10*3/uL (4.8-10.8)
[2025-02-04 21:10] LABS: Appearance Urine Clear; Color Urine Yellow; Glucose Urine UA Negative (Negative); Leukocyte Esterase Urine Negative (Negative); Nitrite Urine Negative (Negative); Urine Blood Negative (Negative); Urine Ketones Negative (Negative); Urine Protein Negative (Neg-Trace)
[2025-02-04 21:42] LABS: Anion Gap 11 (12-20); Blood Urea Nitrogen 9 mg/dL (9-16); C Reactive Protein 0.14 mg/dL (< or = 0.50); Calcium 8.8 mg/dL (8.4-10.2); Carbon Dioxide 25 mmol/L (22-29); Chloride 111 mmol/L (96-108); Creatinine Clr Calc Pharmacy 127.4; Estimated Glomerular Filt Rate > 60; Glucose Random 58 mg/dL (60-115); HCG Quantitative < 2 mIU/mL; Lipase 24 U/L (8-78); Potassium 3.9 mmol/L (3.3-5.1); Sodium 143 mmol/L (135-145)
[2025-02-04 22:07] LABS: Alanine Aminotransferase 26 U/L (0-31); Albumin Level 4.2 g/dL (3.5-5.0); Alkaline Phosphatase 88 U/L (39-117); Aspartate Amino Transferase 22 U/L (5-31); Bilirubin Direct < 0.2 mg/dL (0.0-0.5); Bilirubin Total 0.1 mg/dL (0.0-1.0); Total Protein 7.4 g/dL (6.5-8.0)
[2025-02-04 22:11] LABS: Amphetamine Screen Urine Not Detected (Not Detect); Barbiturates, Urine Not Detected (Not Detect); Benzodiazepines Screen Urine Not Detected (Not Detect); Buprenorphine Scr Not Detected (Not Detect); Cannabinoid Screen Urine Not Detected (Not Detect); Cocaine Screen Urine Not Detected (Not Detect); Fentanyl, urine Not Detected (Not Detect); Methadone Screen, Urine Not Detected (Not Detect); Opiate Screen Urine Not Detected (Not Detect); Oxycodone Screen Urine Not Detected (Not Detect); Phencyclidine Screen Urine Not Detected (Not Detect)
[2025-02-04] MEDS: Dextrose 5 % and 0.9 % NaCl 1,000 ML 125 ML IVCONT (22:15)
[2025-02-04] MEDS: iohexoL 350 MG/ML 100 ML INFUS..BTL 85 ML IV (22:28)
[2025-02-04 23:08] LABS: Glucose, Whole Blood 105 mg/dL (60-115)
[2025-02-04] MEDS: Ketorolac Tromethamine 30 MG/ML VIAL IVPUSH (23:29)
[2025-02-04 23:57] VITALS: BP 105/69; PULSE 93; RESP 16; TEMP 36.7; O2SAT 97
[2025-02-05] VITALS: BP 105/69; PULSE 93; RESP 16; TEMP 36.7; O2SAT 97
== END 2025-02-05 | disposition home or self-care (01) ==
PROVIDERS: Nurse Practitioner Family; Emergency Provider Emergency Medicine; PCP Internal Medicine
DX: R10.31 Right lower quadrant pain (principal); F19.10 Other psychoactive substance abuse, uncomplicated; Z79.899 Other long term (current) drug therapy
CPT/HCPCS: 36415; 74177; 80048; 80076; 80307; 81003; 82947; 83690; 84702; 85025; 86140; 96365; 96366; 96375; 99284; 99285; J1885; Q9967

== ENCOUNTER → 2025-02-04 22:01 | Outpatient (BNV) | payer OTHER, SELFPAY | PROVIDERS: Emergency Provider Emergency Medicine; PCP Internal Medicine; Visit Provider Radiology Diagnostic Radiology | DX: R10.31 Right lower quadrant pain (principal) | CPT/HCPCS: 74177 ==